=== PATIENT | female | born 1985 | race Caucasian/White ===

== ENCOUNTER 2016-10-27 01:31 | Emergency (ER) | payer BC ==
[~2016-10-27] VITALS: Ht 172.7 cm; Wt 131.5 kg
[~2016-10-27 01:31] MED LIST: CLR10 PO; CYCL10TA6 PO; FLUT0.15 NAE; LEVO1IUD PV; METO25TA56 PO; TRAM-10 PO
[2016-10-27 01:34] VITALS: TEMP 37; Ht 172.7 cm; Wt 131.5 kg
--- NOTE | 2016-10-27 01:46 | EMERGENCY ROOM VISIT NOTE ---
History Report prepared by Asiya: Ashley Velásquez Under the Supervision of: Dr. Pierre Salazar M.D. First contact with patient: 01:39 Chief Complaint: PALPITATIONS Stated Complaint: HEART PALPITATIONS History of Present Illness The patient is a 31 year old female who presents to the Emergency Room with complaints of intermittent tachycardia and palpitations that began this evening. The patient states that she felt fine earlier today and states that this evening, after she took her evening medications, she was watching TV when she developed the palpitations and tachycardia. She states that she has had this happen in the past, noting that the first time she was in SVT and the second time her potassium level was off. The patient states that when she noticed the symptoms today she associates a sore throat and cough, which is typical. She denies any chest pain, lymphadenopathy, or shortness of breath. The patient denies any history of thyroid problems or blood clots. She denies any recent travel or recent surgery. She states that she takes control daily. Source of History: patient Onset: this evening Position: other (global) Quality: other (tachycardia and palpitations) Timing: intermittent Associated Symptoms: + cough, + sorethroat, No SOB, No chest pain, No lymphadenopathy Review of Systems See HPI for pertinent positives & negatives. A total of 10 systems reviewed and were otherwise negative. Past Medical & Surgical Medical Problems: (1) UTI (urinary tract infection) Social History Problems: (1) IUD (intrauterine device) in place Family History Patient reports no known family medical history. Social History Smoking Status: Never Smoker Alcohol Use: occasionally Drug Use: none Occupation Status: employed Current/Historical Medications Scheduled Medroxyprogesterone Acetate (Depo-Provera), 400 MG INJ [id number] Metoprolol Tartrate (Lopressor) (Lopressor), 25 MG PO BID Scheduled PRN Cyclobenzaprine Hcl (Flexeril), 10 MG PO BID PRN for SPASMS Fluticasone Propionate (Nasal) (Flonase Allergy Relief), 1 SPRAY DIAMOND DAILY PRN for CONGESTION Loratadine (Claritin), 10 MG PO DAILY PRN for ALLERGIC REACTION Lorazepam (Ativan), 1 MG PO BID PRN for Anxiety Tramadol (Ultram), 50 MG PO Q6H PRN for Pain Allergies Coded Allergies: Cephalexin (Verified Allergy, Unknown, hives, 12/07/14) Prednisone (Verified Allergy, Unknown, SVT, 04/11/16) Physical Exam Vital Signs Date Time Temp Pulse Resp B/P Pulse Ox O2 Delivery O2 Flow Rate FiO2 10/27/16 02:53 84 20 116/73 96 10/27/16 02:06 81 10/27/16 01:53 91 20 120/75 98 Room Air 10/27/16 01:45 Room Air 10/27/16 01:34 37.0 85 20 182/115 97 Room Air Physical Exam GENERAL: Patient is well appearing and in no acute distress. HEENT: No acute trauma, normocephalic atraumatic, mucous membranes moist, no nasal congestion, no scleral icterus. NECK: No stridor, no adenopathy, no meningismus, trachea is midline. LUNGS: No dyspnea. Clear to auscultation and equal bilaterally. No wheeze, no rhonchi. HEART: Regular rate and rhythm. No murmurs, rubs, gallops appreciated. ABDOMEN: Soft, nontender, bowel sounds positive, no masses appreciated, no peritonitis. BACK: No midline tenderness, no CVA tenderness EXTREMITIES: Normal motion all extremities, no cyanosis, no edema. NEUROLOGIC: Alert and oriented, no acute motor or sensory deficits, no focal weakness, cranial nerves grossly intact. SKIN: No rash, no jaundice, no diaphoresis. Medical Decision & Procedures Laboratory Results 10/27/16 01:48 Red Blood Count 5.05, Mean Corpuscular Volume 82.6, Mean Corpuscular Hemoglobin 29.5, Mean Corpuscular Hemoglobin Concent 35.7, Mean Platelet Volume 9.0, Neutrophils (%) (Auto) 52.9, Lymphocytes (%) (Auto) 35.3, Monocytes (%) (Auto) 8.6, Eosinophils (%) (Auto) 2.4, Basophils (%) (Auto) 0.4, Neutrophils # (Auto) 7.05, Lymphocytes # (Auto) 4.72, Monocytes # (Auto) 1.15, Eosinophils # (Auto) 0.32, Basophils # (Auto) 0.06 10/27/16 01:48 Test 10/27/16 01:48 White Blood Count 13.36 K/uL (4.8-10.8) Red Blood Count 5.05 M/uL (4.2-5.4) Hemoglobin 14.9 g/dL (12.0-16.0) Hematocrit 41.7 % (37-47) Mean Corpuscular Volume 82.6 fL (80-100) Mean Corpuscular Hemoglobin 29.5 pg (25-34) Mean Corpuscular Hemoglobin Concent 35.7 g/dl (32-36) Platelet Count 410 K/uL (130-400) Mean Platelet Volume 9.0 fL (7.4-10.4) Neutrophils (%) (Auto) 52.9 % Lymphocytes (%) (Auto) 35.3 % Monocytes (%) (Auto) 8.6 % Eosinophils (%) (Auto) 2.4 % Basophils (%) (Auto) 0.4 % Neutrophils # (Auto) 7.05 K/uL (1.4-6.5) Lymphocytes # (Auto) 4.72 K/uL (1.2-3.4) Monocytes # (Auto) 1.15 K/uL (0.11-0.59) Eosinophils # (Auto) 0.32 K/uL (0-0.5) Basophils # (Auto) 0.06 K/uL (0-0.2) RDW Standard Deviation 40.7 fL (36.4-46.3) RDW Coefficient of Variation 13.6 % (11.5-14.5) Immature Granulocyte % (Auto) 0.4 % Immature Granulocyte # (Auto) 0.06 K/uL (0.00-0.02) Anion Gap 12.0 mmol/L (3-11) Est Creatinine Clear Calc Drug Dose 157.4 ml/min Estimated GFR () 124.0 Estimated GFR (Non- 107.0 BUN/Creatinine Ratio 15.7 (10-20) Calcium Level 8.9 mg/dl (8.5-10.1) Troponin I < 0.015 ng/ml (0-0.045) Thyroid Stimulating Hormone (TSH) 3.420 uIu/ml (0.300-4.500) Laboratory results as reviewed by me. ECG Indication: palpitations, tachycardia Rate (beats per minute): 86 Rhythm: normal sinus Findings: PVC, no acute ischemic change ED Course 0140: The patient was evaluated in room B2. A complete history and physical exam was performed. 0237: I reevaluated the patient and she is feeling well with no further issues. 0247: I reevaluated the patient and she is doing well. I discussed the exam findings with her and I discussed the treatment plan. She verbalized complete understanding and agreement. She is ready to go home. Medical Decision Differential: NSR, SVT, PACs, PVCs, Cardiac Dysrhythmia, Endocrine Dysfunction, Electrolyte/Metabolic Abnormality, Pulmonary Embolism, Infectious, GI, amongst other pathologies entertained. 31 yr old female with several year history of periodic palpitations, usually brought on by caffeine or stress. Admits poor appetite with increased stress/ work over last 24 hours and then stated having palpitations this evening. Notes associated cough which is typical for when she has these palpitations. No PE risk factors and she is without any symptoms currently. States symptoms similar to previous and thus I feel PE work-up not indicated at this time. Notes previously normal TSH/Mag when checked. Follows regularly with cards. BP and HR good here. We discussed she could take extra metoprolol in future if palpitations and no other symptoms. She is comfortable with going home and in no distress. Periodic PVCs on monitor noted without runs or issue. Impression Primary Impression: Intermittent palpitations Scribe Attestation The scribe's documentation has been prepared under my direction and personally reviewed by me in its entirety. I confirm that the note above accurately reflects all work, treatment, procedures, and medical decision making performed by me. Departure Information Dispostion Home / Self-Care Referrals Tyrese Greenfield M.D. (PCP) Forms HOME CARE DOCUMENTATION FORM, IMPORTANT VISIT INFORMATION Patient Instructions A Signature Page, ED Palpitations, My [facility]
[2016-10-27 02:02] LABS: BASO % 0.4 %; BASO ABS # 0.06 K/uL (0-0.2); COMPLETE YES; EOS % 2.4 %; HEMATOCRIT 41.7 % (37-47); IG% 0.4 %; LYMPH % 35.3 %; LYMPH ABS # 4.72 K/uL (1.2-3.4); MEAN CELL VOLUME 82.6 fL (80-100); MEAN CORPUSCULAR HEMOGLOBIN 29.5 pg (25-34); MEAN CORPUSCULAR HGB CONC 35.7 g/dl (32-36); MONO % 8.6 %; NEUT % 52.9 %; PLATELET COUNT 410 K/uL (130-400); RED BLOOD COUNT 5.05 M/uL (4.2-5.4); WHITE BLOOD COUNT 13.36 K/uL (4.8-10.8)
[2016-10-27 02:17] LABS: BLOOD UREA NITROGEN 12 mg/dl (7-18); BUN/CREATININE RATIO 15.7 (10-20); CALCIUM 8.9 mg/dl (8.5-10.1); CARBON DIOXIDE 22 mmol/L (21-32); CHLORIDE 108 mmol/L (98-107); CREATININE 0.75 mg/dl (0.60-1.20); GLUCOSE 107 mg/dl (70-99); POTASSIUM 3.6 mmol/L (3.5-5.1); SODIUM 142 mmol/L (136-145)
[2016-10-27] MEDS ORDERED: ATV/1 PO (02:26)
[2016-10-27] MEDS ORDERED: DPPRI400 INJ (02:29)
[2016-10-27 02:53] VITALS: BP 116/73; PULSE 84; O2SAT 96
== END 2016-10-27 02:54 | disposition home or self-care (01) ==
LOC: C.EDB 01:33
DX: R00.2 Palpitations (principal); Z87.440 Personal history of urinary (tract) infections; Z97.5 Presence of (intrauterine) contraceptive device

== ENCOUNTER 2017-04-10 03:49 | Emergency (ER) | payer BC, OTHER ==
[~2017-04-10] VITALS: Ht 172.7 cm; Wt 138.0 kg
[~2017-04-10 03:49] MED LIST changes: +ATV/1 PO; +DPPRI400 INJ; -LEVO1IUD PV
[2017-04-10 03:54] VITALS: BP 138/92; PULSE 81; TEMP 36.9; O2SAT 96; Ht 172.7 cm; Wt 138.0 kg
[2017-04-10] MEDS ORDERED: ONDA4TAB10 SL (04:22)
--- NOTE | 2017-04-10 04:27 | EMERGENCY ROOM VISIT NOTE ---
History First contact with patient: 04:00 Chief Complaint: HEAD INJURY (MINOR) Stated Complaint: CONCUSSION X 1WK AGO History of Present Illness The patient is a 31 year old female who presents to the Emergency Room with complaints of head injury one week ago. Patient states she stepped up and her jeep and hit her head on the door. She complained of immediate headache with feeling lightheaded and dizzy. Patient saw her family care for this was diagnosed with concussion. Patient states this is her first night back to work and feels that this if she overdid it. Patient states she did a lot of house cleaning today before coming into work. She has not been really not much since the initial head injury. She developed headache and vomited tonight after reading a lot of charts and documenting. She currently complains of a headache and feels lightheaded. 5 out of 10 throughout the head. Nothing makes it better or worse. Patient with occasional dizziness with feeling off balance. Patient denies chest pain, dyspnea, loss of vision, blurry vision, neck pain, chest pain, abdominal pain, numbness, tingling. She is tolerate by mouth fluids and food. Review of Systems See HPI for pertinent positives & negatives. A total of 10 systems reviewed and were otherwise negative. Past Medical/Surgical History Medical Problems: (1) UTI (urinary tract infection) Social History Problems: (1) IUD (intrauterine device) in place Family History Patient reports no known family medical history. Social History Smoking Status: Never Smoker Alcohol Use: occasionally Drug Use: none Occupation Status: employed Current/Historical Medications Scheduled Medroxyprogesterone Acetate (Depo-Provera), 400 MG INJ [id number] Metoprolol Tartrate (Lopressor) (Lopressor), 25 MG PO BID Ondasetron Odt (Zofran Odt), 4 MG SL Q6H Scheduled PRN Cyclobenzaprine Hcl (Flexeril), 10 MG PO BID PRN for SPASMS Fluticasone Propionate (Nasal) (Flonase Allergy Relief), 1 SPRAY DIAMOND DAILY PRN for CONGESTION Loratadine (Claritin), 10 MG PO DAILY PRN for ALLERGIC REACTION Lorazepam (Ativan), 1 MG PO BID PRN for Anxiety Tramadol (Ultram), 50 MG PO Q6H PRN for Pain Allergies Coded Allergies: Cephalexin (Verified Allergy, Unknown, hives, 12/07/14) Prednisone (Verified Allergy, Unknown, SVT, 04/11/16) Physical Exam Vital Signs Date Time Temp Pulse Resp B/P (MAP) Pulse Ox O2 Delivery O2 Flow Rate FiO2 04/10/17 04:01 18 04/10/17 03:54 36.9 81 20 138/92 96 Room Air Physical Exam VITALS: Vitals are noted on the nurse's note and reviewed by myself. Vital signs stable. GENERAL: Pleasant female, in no acute distress, nondiaphoretic, well-developed well-nourished. SKIN: The skin was without rashes, erythema, edema, or bruising. There is no tenting of the skin. Capillary reflex less than 2 seconds. HEAD: Normocephalic atraumatic. EARS: External auditory canals clear, tympanic membranes pearly gonzales without erythema or effusion bilaterally. EYES: Pupils equal round and reactive to light and accommodation. Conjunctivae without injection, sclerae without icterus. Extraocular movements intact. NOSE: Patent, turbinates without inflammation or discharge. No sinus tenderness. MOUTH: Mucous membranes moist. Pharynx without erythema or exudate. Uvula midline. Airway patent. Tongue does not deviate. NECK: Supple without nuchal rigidity. No lymphadenopathy. No thyromegaly. Cervical spine is nontender. No JVD. HEART: Regular rate and rhythm without murmurs gallops or rubs. LUNGS: Clear to auscultation bilaterally without wheezes, rales or rhonchi. No dullness to percussion. No retractions or accessory muscle use. ABDOMEN: Positive bowel sounds x 4. Normal tympanic percussion. Soft, nontender, without masses or organomegaly. Longoria sign negative. No guarding or rebound tenderness. MUSCULOSKELETAL: No muscle atrophy, erythema, or edema noted. NEURO: Patient was alert and oriented to person place and time. Normal sensation to light and sharp touch. No focal neurological deficits. Cranial nerves II through XII grossly intact. No pronator drift. Cerebellar exam intact Medical Decision & Procedures ED Course Prior records/ancillary studies reviewed. Triage Nursing notes reviewed. The patient's history was concerning for traumatic head injury Differential diagnosis: Etiologies such as concussion, contusion, fracture, subdural hematoma, epidural hematoma, intraparenchymal hemorrhage, as well as other traumatic pathologies were entertained. Physical examination findings: As above. ER treatment provided: Zofran ODT On reassessment the patient felt better. Diagnostics interpreted by me: Deferred It appears the patient has a concussion. I discussed the risks and the benefits of CT scanning. Clinically the patient is doing well and does not appear to have a significant underlying injury. The pt felt comfortable with conservative observation with the understanding if the clinical picture change that imaging may be necessary at a later time. I gave my usual and customary discussion regarding this issue. Patient was advised follow-up concussion clinic here in [facility]. She is advised to avoid activities that cause her headaches and to take a break from activity when she develops one. She is advised to see her family care doctor in a few days and take Zofran and Tylenol as needed for her symptoms. She is advised to return to the ER immediately for severe headache, fevers, weakness, worsening signs or symptoms or as needed. Patient was neurovascularly and neurologically intact. She is well-appearing. By the evaluation outlined above emergent etiologies such as fracture, subdural hematoma, epidural hematoma, intraparenchymal hemorrhage, as well as others were deemed relatively unlikely. The pt informed about the findings as listed above. All questions were answered and pleased with the treatment. Return instructions were outlined and the patient was discharged in stable condition. Outpatient Prescription Management: zofran Referral: The patient was referred back to their primary care physician for follow-up in 2 to 3 days for a recheck of the current condition. Medical Decision As above Impression Primary Impression: Closed head injury Departure Information Dispostion Home / Self-Care Condition GOOD Prescriptions Ondasetron Odt (ZOFRAN ODT) 4 Mg Tab 4 MG SL Q6H, #10 TAB Prov: Shelbi Luque .ANABEL 04/10/17 Forms HOME CARE DOCUMENTATION FORM, Work Instructions, Return To Work: 3 days IMPORTANT VISIT INFORMATION Patient Instructions Concussion, My [facility] Additional Instructions Zofran 4 m tablet every 6 hours as needed for nausea and her vomiting. Read head injury handout and return for any symptoms. Tylenol 1000 mg as needed for pain (Maximum 3000 mg Tylenol in 24 hr period). Avoid alcohol and contact sports/activities for one week and follow up with family doctor prior to returning to these activities if still symptomatic. Ice and elevate head. If your symptoms persist more than a week then follow up with the concussion clinic. Call [phone]. Return to ER sooner for headache, fevers, confusion, worsening signs or symptoms or as needed. Follow-up with family care in 2-3 days for further evaluation. Work Instructions Return To Work: 3 days Problem Qualifiers Primary Impression: Closed head injury Encounter type: initial encounter Qualified Codes: S09.90XA - Unspecified injury of head, initial encounter
[2017-04-10] MEDS ORDERED: ONDANSETRON HOME PACK 4MG OD TAB PO ONE (04:30)
== END 2017-04-10 04:34 | disposition home or self-care (01) ==
LOC: C.EDB 03:50 → C.EDA 04:34
DX: S09.90XA Unspecified injury of head, initial encounter (principal); V48.4XXA Person boarding or alighting a car injured in noncollision transport accident, initial encounter

== ENCOUNTER → 2017-06-22 | Outpatient (CLI) | payer OTHER ==
[~2017-06-22] MED LIST changes: +ONDA4TAB10 SL
== END | disposition home or self-care (01) ==
LOC: C.PAPS 10:28
PROVIDERS: ATTEND Obstetrics & Gynecology
DX: Z12.4 Encounter for screening for malignant neoplasm of cervix (principal)

== ENCOUNTER 2017-09-24 08:32 | Emergency (ER) | payer OTHER ==
[~2017-09-24] VITALS: Ht 172.7 cm; Wt 133.7 kg
[2017-09-24 08:35] VITALS: TEMP 36.9; Ht 172.7 cm; Wt 133.7 kg
[2017-09-24] MEDS ORDERED: ALBUT/IPRATROP 3MG/0.5MG NEB 3 ML VIAL INH STA (08:51)
[2017-09-24] MEDS ORDERED: DEXAMETHASONE SOD INJ 4 MG/ML VIAL IM STA (08:51)
[2017-09-24] MEDS ORDERED: DEXAMETHASONE **PF** INJ 10 MG/ML VIAL ONE (09:09)
[2017-09-24] MEDS ORDERED: DILT120C43 PO (09:18)
[2017-09-24] MEDS ORDERED: LXP10 PO (09:18)
--- NOTE | 2017-09-24 09:21 | DIAGNOSTIC IMAGING REPORT ---
CHEST ONE VIEW PORTABLE HISTORY: 32 years-old Female cough acute cough COMPARISON: Chest radiograph 12/08/2014 TECHNIQUE: Portable AP view of the chest FINDINGS: Cardiomediastinal and hilar silhouettes are within normal limits. No pneumothorax, pleural effusion, focal airspace consolidation or overt pulmonary edema. Bones of the chest are grossly intact. IMPRESSION: No acute cardiopulmonary process. The above report was generated using voice recognition software. It may contain grammatical, syntax or spelling errors. Electronically signed by: Abdirashid Schmidt M.D. 09/24/2017 9:20 AM Dictated Date/Time: 09/24/2017 9:15 AM
--- NOTE | 2017-09-24 09:57 | EMERGENCY ROOM VISIT NOTE ---
History Report prepared by Asiya: Shabbir Barcenas Under the Supervision of: Dr. Nathan Dang D.O. First contact with patient: 08:40 Chief Complaint: COUGH Stated Complaint: UPPER RESPIRATORY INFECTION History of Present Illness The patient is a 32 year old female who presents to the Emergency Room with complaints of a cough that began 1 month ago. She has a past medical history of SVT and was previously on Lopressor. She follows up with Cardiology and was recently switched from Lopressor to Cardizem. Over this time, she has been intermittently coughing up thick yellow sputum with a feeling of chest congestion. She is also has a sore throat. She denies any other abnormal symptoms. Source of History: patient Onset: 1 month Position: other (Respiratory System) Symptom Intensity: moderate Quality: other (Cough) Timing: constant Associated Symptoms: + sorethroat Note: She is having chest congestion. She denies any other abnormal symptoms. Review of Systems See HPI for pertinent positives & negatives. A total of 10 systems reviewed and were otherwise negative. Past Medical & Surgical Medical Problems: (1) UTI (urinary tract infection) Social History Problems: (1) IUD (intrauterine device) in place Family History Patient reports no known family medical history. Social History Smoking Status: Never Smoker Alcohol Use: occasionally Drug Use: none Occupation Status: employed Current/Historical Medications Scheduled Diltiazem Hcl Coated Beads (Cartia Xt), 120 MG PO DAILY Escitalopram Oxalate (Escitalopram Oxalate), 10 MG PO DAILY Medroxyprogesterone Acetate (Depo-Provera), 400 MG INJ [id number] Ondasetron Odt (Zofran Odt), 4 MG SL Q6H Scheduled PRN Cyclobenzaprine Hcl (Flexeril), 10 MG PO BID PRN for SPASMS Fluticasone Propionate (Nasal) (Flonase Allergy Relief), 1 SPRAY DIAMOND DAILY PRN for CONGESTION Loratadine (Claritin), 10 MG PO DAILY PRN for ALLERGIC REACTION Lorazepam (Ativan), 1 MG PO BID PRN for Anxiety Tramadol (Ultram), 50 MG PO Q6H PRN for Pain Allergies Coded Allergies: Cephalexin (Verified Allergy, Unknown, hives, 09/24/17) Prednisone (Verified Allergy, Unknown, SVT, 09/24/17) Physical Exam Vital Signs Date Time Temp Pulse Resp B/P (MAP) Pulse Ox O2 Delivery O2 Flow Rate FiO2 09/24/17 09:14 Room Air 09/24/17 08:35 36.9 99 18 129/91 96 Room Air Physical Exam CONSTITUTIONAL/VITAL SIGNS: Reviewed / noted above. GENERAL: Non-toxic in appearance. INTEGUMENTARY: Warm, dry, and [address]. HEAD: Normocephalic. EYES: without scleral icterus or trauma. ENT/OROPHARYNX: Moist. There are numerous tiny posterior pharyngeal vesicles. LYMPHADENOPATHY/NECK: Is supple without lymphadenopathy or meningismus. RESPIRATORY: Lungs clear and equal. CARDIOVASCULAR: Regular rate and rhythm. GI/ABDOMEN: Soft and nontender. No organomegaly or pulsatile mass. No rebound or guarding. Normal bowel sounds. EXTREMITIES: Warm and well perfused. BACK: No CVA tenderness. NEUROLOGICAL: Intact without focal deficits. PSYCHIATRIC: normal affect. MUSCULOSKELETAL: Normally developed with good muscle tone. Medical Decision & Procedures ER Provider Diagnostic Interpretation: Radiology results as stated below per my review and radiologist interpretation: CHEST ONE VIEW PORTABLE HISTORY: 32 years-old Female cough acute cough COMPARISON: Chest radiograph 12/08/2014 TECHNIQUE: Portable AP view of the chest FINDINGS: Cardiomediastinal and hilar silhouettes are within normal limits. No pneumothorax, pleural effusion, focal airspace consolidation or overt pulmonary edema. Bones of the chest are grossly intact. IMPRESSION: No acute cardiopulmonary process. The above report was generated using voice recognition software. It may contain grammatical, syntax or spelling errors. Electronically signed by: Abdirashid Schmidt M.D. 09/24/2017 9:20 AM Dictated Date/Time: 09/24/2017 9:15 AM Medications Administered Medications (Trade) Dose Ordered Sig/Kenney Route Start Time Stop Time Status Last Admin Dose Admin Albuterol/ Ipratropium (Duoneb) 3 ml NOW STAT INH 09/24/17 08:51 09/24/17 08:57 DC 09/24/17 09:11 3 ML Dexamethasone Sodium Phosphate (Dexamethasone Inj Pf) 10 mg STK-MED ONCE .ROUTE 09/24/17 09:09 09/24/17 09:10 DC 09/24/17 09:13 8 MG ED Course 0840: Previous medical records were reviewed. The patient was evaluated in room B2. A complete history and physical examination was performed. 0851: Ordered Decadron Inj 8 mg IM, DuoNeb 3 ml INH 0909: Ordered Dexamethasone Sodium Phosphate 10 mg .ROUTE 1000: On reevaluation, the patient is resting. I discussed the results and findings with the patient. She verbalized agreement of the treatment plan. She was discharged home. Medical Decision Differentials considered include acute myocardial infarction, acute coronary syndrome, myocarditis, pericarditis, pericardial effusions /tamponade, esophageal perforation, pulmonary embolism, pneumonia, pneumothorax, cardiomyopathy, congestive heart, anemia, and COPD/asthma exacerbation. This is a 32-year-old female who presents to the ED with a chief complaint of a cough she reports that her symptoms have increased over the last couple of days. She states that she has an occasional productive yellow sputum. She also complains of a sore throat. Her vital signs are normal. She is afebrile. Physical exam reveals some posterior oropharyngeal vesicles. She is no lymphadenopathy. Her lungs were mostly clear. She was treated with a DuoNeb treatment as well as some IM Decadron. Her symptoms are felt to be viral. A chest x-ray did not show acute process. She is felt to be stable for discharge. Medication Reconcilliation Current Medication List: was personally reviewed by me Blood Pressure Screening Patient's blood pressure: Normal blood pressure Blood pressure disposition: Did not require urgent referral Impression Primary Impression: Viral URI with cough Scribe Attestation The scribe's documentation has been prepared under my direction and personally reviewed by me in its entirety. I confirm that the note above accurately reflects all work, treatment, procedures, and medical decision making performed by me. Departure Information Dispostion Home / Self-Care Referrals Tyrese Greenfield M.D. (PCP) Forms HOME CARE DOCUMENTATION FORM, IMPORTANT VISIT INFORMATION Patient Instructions My [facility] Additional Instructions Follow-up with your PCP in 4-7 days if symptoms persist. Anticipate some improvement of the symptoms over the next week. Take Tylenol or Motrin as needed for discomfort. Use throat lozenges or sore throat sprays for sore throat.
[2017-09-24 10:37] VITALS: BP 131/88; PULSE 93; O2SAT 98
== END 2017-09-24 10:38 | disposition home or self-care (01) ==
LOC: C.EDB 08:34
DX: J06.9 Acute upper respiratory infection, unspecified (principal); R05 Cough

== ENCOUNTER 2017-12-06 16:52 | Emergency (ER) | payer OTHER ==
[~2017-12-06] VITALS: Ht 172.7 cm; Wt 135.6 kg
[~2017-12-06 16:52] MED LIST changes: -CLR10 PO; -CYCL10TA6 PO; +DILT120C43 PO; -FLUT0.15 NAE; +LXP10 PO; -METO25TA56 PO; -ONDA4TAB10 SL
[2017-12-06 17:07] VITALS: TEMP 37; Ht 172.7 cm; Wt 135.6 kg
--- NOTE | 2017-12-06 17:36 | EMERGENCY ROOM VISIT NOTE ---
History Report prepared by Asiay: Blair Dodson Under the Supervision of: Dr. Nathan Velasquez M.D. First contact with patient: 17:09 Chief Complaint: OVERDOSE (INTENTIONAL) Stated Complaint: TOOK PILLS AND ALCOHOL History of Present Illness The patient is a 32 year old female who presents to the Emergency Room with complaints of a persistent intentional overdose occurring earlier today. The patient's mother states that the patient took her regular prescribed medications at a normal dose, and her called the police for the patient. The patient states that she was taking this medication to get some sleep since she has been crying all last night and today, and she states that she was not trying to kill herself. The patient states that she is currently having marital problems with her . The patient's mother notes that when the police came, the patient was able to walk and talk normally, and the patient did not want to come to the hospital. The mother notes that before the patient came in she tried to grab a bottle of liquor from the cabinet, but the mother was able to dump it out. The patient denies any suicidal or homicidal ideations. The patient states that she had 2-3 drinks of alcohol today. She states that there is no chance that she is , and her last normal menstrual period was the 16th. The patient states that she takes Ultram for her herniated disc, and she took ibuprofen and Benadryl. Source of History: patient Onset: earlier today Position: other (global) Quality: other (overdose) Timing: other (persistent) Note: Denies suicidal and homicidal ideations. Review of Systems See HPI for pertinent positives & negatives. A total of 10 systems reviewed and were otherwise negative. Past Medical & Surgical Medical Problems: (1) UTI (urinary tract infection) Social History Problems: (1) IUD (intrauterine device) in place Family History Patient reports no known family medical history. Social History Smoking Status: Never Smoker Alcohol Use: occasionally Drug Use: none Occupation Status: employed Current/Historical Medications Scheduled Diltiazem Hcl Coated Beads (Cartia Xt), 120 MG PO DAILY Escitalopram Oxalate (Escitalopram Oxalate), 10 MG PO DAILY Fluticasone Propionate (Flovent Hfa), 2 PUFFS INH BID Medroxyprogesterone Acetate (C (Medroxyprogesterone Aceta), 150 MG IM UD Montelukast Sod (Montelukast Sodium), 10 MG PO DAILY Naltrexone HCl-Bupropion HCl (Contrave 8-90 mg), 1 TAB PO BID Scheduled PRN Albuterol Hfa (Ventolin Hfa), 2 PUFFS INH Q4H PRN for SOB/Wheezing Cyclobenzaprine Hcl (Flexeril), 10 MG PO BID PRN for Muscle Spasm Fluticasone Propionate (Nasal) (Flonase Allergy Relief), 2 SPRAYS DIAMOND DAILY PRN for Nasal Congestion Loratadine (Claritin), 10 MG PO DAILY PRN for Allergy Symptoms Lorazepam (Ativan), 1 MG PO DAILY PRN for Prior to Dental Appointment Tramadol HCl (Tramadol HCl), 50 MG PO Q6H PRN for Pain Zolpidem Tartrate (Zolpidem Tartrate), 10 MG PO HS PRN for Sleep Allergies Coded Allergies: Cephalexin (Verified Allergy, Unknown, hives, 09/24/17) Prednisone (Verified Allergy, Unknown, SVT, 09/24/17) Physical Exam Vital Signs Date Time Temp Pulse Resp B/P (MAP) Pulse Ox O2 Delivery O2 Flow Rate FiO2 12/06/17 20:07 108 18 109/77 95 12/06/17 18:40 114 22 120/70 93 Room Air 12/06/17 18:06 107 12/06/17 17:37 94 Room Air 12/06/17 17:07 37.0 118 18 112/71 94 Room Air Physical Exam GENERAL: Patient is a healthy-appearing well-nourished female HEAD: Normocephalic atraumatic EYES: Ocular movements intact pupils equal and react to light OROPHARYNX mucous membranes are moist no exudates present no erythema or edema present NECK: Supple no nuchal rigidity CHEST: Good equal expansion LUNGS: Clear and equal to auscultation CARDIAC: Normal S1 and S2 ABDOMEN: Soft nontender no guarding BACK: No CVA tenderness EXTREMITIES: No pain upon palpation normal muscle strength in all groups no clubbing cyanosis or edema NEURO: Patient is following commands and answering questions appropriately. Alert and oriented x3 Cranial Nerves 2-12 grossly intact Medical Decision & Procedures Laboratory Results 12/06/17 17:31 Red Blood Count 5.21, Mean Corpuscular Volume 81.8, Mean Corpuscular Hemoglobin 29.2, Mean Corpuscular Hemoglobin Concent 35.7, Mean Platelet Volume 8.6, Neutrophils (%) (Auto) 56.9, Lymphocytes (%) (Auto) 33.9, Monocytes (%) (Auto) 7.0, Eosinophils (%) (Auto) 1.2, Basophils (%) (Auto) 0.6, Neutrophils # (Auto) 6.45, Lymphocytes # (Auto) 3.85, Monocytes # (Auto) 0.79, Eosinophils # (Auto) 0.14, Basophils # (Auto) 0.07 12/06/17 17:31 Test 12/06/17 17:31 12/06/17 17:34 12/06/17 17:55 White Blood Count 11.35 K/uL (4.8-10.8) Red Blood Count 5.21 M/uL (4.2-5.4) Hemoglobin 15.2 g/dL (12.0-16.0) Hematocrit 42.6 % (37-47) Mean Corpuscular Volume 81.8 fL (80-100) Mean Corpuscular Hemoglobin 29.2 pg (25-34) Mean Corpuscular Hemoglobin Concent 35.7 g/dl (32-36) Platelet Count 395 K/uL (130-400) Mean Platelet Volume 8.6 fL (7.4-10.4) Neutrophils (%) (Auto) 56.9 % Lymphocytes (%) (Auto) 33.9 % Monocytes (%) (Auto) 7.0 % Eosinophils (%) (Auto) 1.2 % Basophils (%) (Auto) 0.6 % Neutrophils # (Auto) 6.45 K/uL (1.4-6.5) Lymphocytes # (Auto) 3.85 K/uL (1.2-3.4) Monocytes # (Auto) 0.79 K/uL (0.11-0.59) Eosinophils # (Auto) 0.14 K/uL (0-0.5) Basophils # (Auto) 0.07 K/uL (0-0.2) RDW Standard Deviation 41.1 fL (36.4-46.3) RDW Coefficient of Variation 13.7 % (11.5-14.5) Immature Granulocyte % (Auto) 0.4 % Immature Granulocyte # (Auto) 0.05 K/uL (0.00-0.02) Prothrombin Time 10.2 SECONDS (9.0-12.0) Prothromb Time International Ratio 1.0 (0.9-1.1) Activated Partial Thromboplast Time 27.5 SECONDS (21.0-31.0) Partial Thromboplastin Ratio 1.1 Anion Gap 8.0 mmol/L (3-11) Est Creatinine Clear Calc Drug Dose 141.8 ml/min Estimated GFR () 107.3 Estimated GFR (Non- 92.6 BUN/Creatinine Ratio 11.3 (10-20) Calcium Level 9.0 mg/dl (8.5-10.1) Total Bilirubin 0.2 mg/dl (0.2-1) Direct Bilirubin < 0.1 mg/dl (0-0.2) Aspartate Amino Transf (AST/SGOT) 13 U/L (15-37) Alanine Aminotransferase (ALT/SGPT) 24 U/L (12-78) Alkaline Phosphatase 98 U/L (45-117) Total Creatine Kinase 119 U/L (26-192) Total Protein 8.5 gm/dl (6.4-8.2) Albumin 3.8 gm/dl (3.4-5.0) Lipase 151 U/L (73-393) Salicylates Level 6.2 mg/dl (2.8-20) Acetaminophen Level < 2 ug/ml (10-30) Ethyl Alcohol mg/dL 73.0 mg/dl (0-3) Bedside Glucose 90 mg/dl (70-90) Urine Color YELLOW Urine Appearance CLEAR (CLEAR) Urine pH 5.5 (4.5-7.5) Urine Specific [place] 1.015 (1.000-1.030) Urine Protein NEG (NEG) Urine Glucose (UA) NEG (NEG) Urine Ketones NEG (NEG) Urine Occult Blood NEG (NEG) Urine Nitrite NEG (NEG) Urine Bilirubin NEG (NEG) Urine Urobilinogen NEG (NEG) Urine Leukocyte Esterase NEG (NEG) Urine Test NEG (NEG) Urine Opiates Screen POS (NEG) Urine Methadone, Qualitative NEG (NEG) Urine Barbiturates NEG (NEG) Urine Phencyclidine (PCP) Level NEG (NEG) Ur Amphetamine/Methamphetamine NEG (NEG) MDMA (Ecstasy) Screen POS (NEG) Urine Benzodiazepines Screen NEG (NEG) Urine Cocaine Metabolite NEG (NEG) Urine Marijuana (THC) NEG (NEG) Labs reviewed by ED physician. ECG Per My Interpretation Indication: toxicologic Rate (beats per minute): 114 Rhythm: sinus tachycardia Findings: other (Normal axis, no ST evleation or depression) ED Course 1708: Past medical records reviewed. The patient was evaluated in room B5. A complete history and physical examination was performed. 1945: The psych family independence case manager, and he thinks that the patient is able to go home. 2004: Upon reexamination the patient is doing well. I discussed results and treatment plan with the patient. She verbalizes agreement and understanding. The patient is ready for discharge. Medical Decision Differential diagnosis: Etiologies such as toxicologic, infection, hypoglycemia, electrolyte abnormalities, cardiac sources, intracerebral event, neurologic, as well as others were entertained. This is a 32-year-old female presents emergency department after drinking alcohol this evening. The patient took her normal doses of medications. She is brought here by her mother. Patient is sad over her marriage. She is willing to speak with case management but denies being suicidal or homicidal. Case management felt that the patient was well enough to be discharged home. The patient denies being suicidal however I stressed she return to the emergency department she develops any suicidal thoughts. Patient and mother were in agreement with the treatment plan. Medication Reconcilliation Current Medication List: was personally reviewed by me Blood Pressure Screening Patient's blood pressure: Normal blood pressure Impression Primary Impression: Mood disorder Scribe Attestation The scribe's documentation has been prepared under my direction and personally reviewed by me in its entirety. I confirm that the note above accurately reflects all work, treatment, procedures, and medical decision making performed by me. Departure Information Dispostion Home / Self-Care Referrals No Doctor, Assigned (PCP) Forms HOME CARE DOCUMENTATION FORM, IMPORTANT VISIT INFORMATION, WORK / SCHOOL INSTRUCTIONS Patient Instructions My [facility] Additional Instructions Need follow up with outpatient psych services Return if symptoms worsen You have been examined and treated today on an emergency basis only. This is not a substitute for, or an effort to provide, complete comprehensive medical care. It is impossible to recognize and treat all injuries or illnesses in a single emergency department visit. It is therefore important that you follow up closely with Dr Greenfield. Call as soon as possible for an appointment. Thank you for your time and consideration. I look forward to speaking with you again soon. Please don't hesitate to call us if you have any questions.
[2017-12-06 17:37] VITALS: O2SAT 94
[2017-12-06 17:57] LABS: BASO % 0.6 %; BASO ABS # 0.07 K/uL (0-0.2); EOS % 1.2 %; EOS ABS # 0.14 K/uL (0-0.5); HEMATOCRIT 42.6 % (37-47); HEMOGLOBIN 15.2 g/dL (12.0-16.0); IG# 0.05 K/uL (0.00-0.02); LYMPH % 33.9 %; LYMPH ABS # 3.85 K/uL (1.2-3.4); MEAN CELL VOLUME 81.8 fL (80-100); MEAN CORPUSCULAR HEMOGLOBIN 29.2 pg (25-34); MEAN CORPUSCULAR HGB CONC 35.7 g/dl (32-36); MEAN PLATELET VOLUME 8.6 fL (7.4-10.4); MONO ABS # 0.79 K/uL (0.11-0.59); NEUT % 56.9 %; NEUT ABS # 6.45 K/uL (1.4-6.5); PLATELET COUNT 395 K/uL (130-400); RED CELL DISTRIBUTION WIDTH CV 13.7 % (11.5-14.5); RED CELL DISTRIBUTION WIDTH SD 41.1 fL (36.4-46.3); WHITE BLOOD COUNT 11.35 K/uL (4.8-10.8)
[2017-12-06 18:06] LABS: PTT PATIENT 27.5 SECONDS (21.0-31.0)
[2017-12-06] MEDS ORDERED: FLVHFA110 INH (18:11)
[2017-12-06] MEDS ORDERED: MEDR1INJ5 IM (18:11)
[2017-12-06] MEDS ORDERED: SNG10 PO (18:11)
[2017-12-06] MEDS ORDERED: ULT50 PO (18:11)
[2017-12-06] MEDS ORDERED: VNTHFA/IN INH (18:11)
[2017-12-06] MEDS ORDERED: ZOLP10TA6 PO (18:11)
[2017-12-06 18:17] LABS: ALBUMIN 3.8 gm/dl (3.4-5.0); ALT/SGPT 24 U/L (12-78); BLOOD UREA NITROGEN 10 mg/dl (7-18); CARBON DIOXIDE 22 mmol/L (21-32); CREATININE 0.84 mg/dl (0.60-1.20); GLUCOSE 89 mg/dl (70-99); LIPASE 151 U/L (73-393); POTASSIUM 3.5 mmol/L (3.5-5.1); SODIUM 140 mmol/L (136-145)
[2017-12-06] MEDS ORDERED: NALT1TAB14 PO (18:17)
[2017-12-06 18:20] LABS: ALKALINE PHOSPHATASE 98 U/L (45-117); AST/SGOT 13 U/L (15-37); TOTAL PROTEIN 8.5 gm/dl (6.4-8.2)
[2017-12-06] MEDS ORDERED: CLR10 PO (18:42)
[2017-12-06] MEDS ORDERED: CYCL10TA6 PO (18:43)
[2017-12-06] MEDS ORDERED: FLUT0.15 NAE (18:46)
[2017-12-06 20:07] VITALS: BP 109/77; PULSE 108; O2SAT 95
== END 2017-12-06 20:04 | disposition home or self-care (01) ==
LOC: C.EDB 16:54
DX: F39 Unspecified mood [affective] disorder (principal); Z87.440 Personal history of urinary (tract) infections; Z79.899 Other long term (current) drug therapy

== ENCOUNTER 2018-02-21 02:00 | Emergency (ER) | payer OTHER ==
[~2018-02-21] VITALS: Ht 172.7 cm; Wt 136.6 kg
[~2018-02-21 02:00] MED LIST changes: +CLR10 PO; +CYCL10TA6 PO; -DPPRI400 INJ; +FLUT0.15 NAE; +FLVHFA110 INH; +MEDR1INJ5 IM; +NALT1TAB14 PO; +SNG10 PO; -TRAM-10 PO; +ULT50 PO; +VNTHFA/IN INH; +ZOLP10TA6 PO
[2018-02-21 02:06] VITALS: TEMP 36.9; Ht 172.7 cm; Wt 136.6 kg
[2018-02-21] MEDS ORDERED: SODIUM CHLORIDE 0.9% 1000ML 1,000 ML IV STA (02:20)
[2018-02-21] MEDS ORDERED: ALBUT/IPRATROP 3MG/0.5MG NEB 3 ML VIAL INH STA (02:20)
[2018-02-21] MEDS ORDERED: DEXAMETHASONE **PF** INJ 10 MG/ML VIAL IV ONE (02:30)
[2018-02-21] MEDS ORDERED: ESCI1TAB10 PO (02:35)
[2018-02-21] MEDS ORDERED: ABL/5 PO (02:36)
[2018-02-21] MEDS ORDERED: TOPI25TA99 PO (02:37)
[2018-02-21 02:47] LABS: BASO % 0.5 %; BASO ABS # 0.05 K/uL (0-0.2); EOS % 3.6 %; EOS ABS # 0.35 K/uL (0-0.5); HEMOGLOBIN 14.3 g/dL (12.0-16.0); IG# 0.07 K/uL (0.00-0.02); LYMPH % 40.5 %; MEAN CELL VOLUME 83.5 fL (80-100); MEAN CORPUSCULAR HEMOGLOBIN 28.4 pg (25-34); MEAN PLATELET VOLUME 8.6 fL (7.4-10.4); MONO % 7.9 %; MONO ABS # 0.76 K/uL (0.11-0.59); NEUT % 46.8 %; NEUT ABS # 4.51 K/uL (1.4-6.5); PLATELET COUNT 350 K/uL (130-400); RED CELL DISTRIBUTION WIDTH CV 14.6 % (11.5-14.5); RED CELL DISTRIBUTION WIDTH SD 44.4 fL (36.4-46.3); WHITE BLOOD COUNT 9.64 K/uL (4.8-10.8)
--- NOTE | 2018-02-21 03:04 | EMERGENCY ROOM VISIT NOTE ---
History Report prepared by Asiya: Merissa Jasso Under the Supervision of: Dr. Pierre Salazar M.D. First contact with patient: 02:10 Chief Complaint: SORETHROAT Stated Complaint: SORE THROAT, DIZZY, COUGH History of Present Illness The patient is a 32 year old female who presents to the Emergency Room with complaints of a constant sore throat starting a month ago. The patient states that she thinks she has mono. She reports that she saw her PCP yesterday who thought the same thing and started her on a Z-pack. She states her PCP also noticed fluid in her ears. She reports that she was not started on a steroid, but thought maybe she should be. The patient complains of fatigue, nasal congestion, loss of appetite, fevers, a rash of little red bumps, loose stools since starting the Z-Pack, and feeling like her breathing is off. She notes that she has used Flonase, Marc-vent, and Albuterol with no relief. She notes that she lives in an apartment with mold and that she is being followed for her breathing problem. The patient denies exposure to someone with mono, a history of asthma, abdominal pain, recent tick bites, ever having Lyme, urinary symptoms , and the chance of . The patient notes that she recently was on a cruise. Source of History: patient Onset: a month ago Position: throat Quality: other (sore) Timing: constant Associated Symptoms: + fevers, + diarrhea, + fatigue, + rash, No abdominal pain, No urinary symptoms Note: The patient complains of nasal congestion, loss of appetite, and feeling like her breathing is off. The patient denies recent tick bites. Review of Systems See HPI for pertinent positives & negatives. A total of 10 systems reviewed and were otherwise negative. Past Medical & Surgical Medical Problems: (1) UTI (urinary tract infection) Social History Problems: (1) IUD (intrauterine device) in place Family History Patient reports no known family medical history. Social History Smoking Status: Never Smoker Alcohol Use: occasionally Drug Use: none Marital Status: single Housing Status: lives alone Occupation Status: employed Current/Historical Medications Scheduled Aripiprazole (Abilify), 5 MG PO DAILY Diltiazem Hcl Coated Beads (Cartia Xt), 240 MG PO DAILY Escitalopram Oxalate (Lexapro), 20 MG PO DAILY Fluticasone Propionate (Flovent Hfa), 2 PUFFS INH BID Medroxyprogesterone Acetate (C (Medroxyprogesterone Aceta), 150 MG IM UD Methylprednisolone (Medrol Dosepak), 1 PKT PO UD Montelukast Sod (Montelukast Sodium), 10 MG PO DAILY Naltrexone HCl-Bupropion HCl (Contrave 8-90 mg), 1 TAB PO BID Topiramate (Topamax ), 25 MG PO BID Scheduled PRN Albuterol Hfa (Ventolin Hfa), 2 PUFFS INH Q4H PRN for SOB/Wheezing Fluticasone Propionate (Nasal) (Flonase Allergy Relief), 2 SPRAYS DIAMOND DAILY PRN for Nasal Congestion Loratadine (Claritin), 10 MG PO DAILY PRN for Allergy Symptoms Lorazepam (Ativan), 0.5 MG PO DAILY PRN for Prior to Dental Appointment Allergies Coded Allergies: Cephalexin (Verified Allergy, Unknown, hives, 02/21/18) Prednisone (Verified Allergy, Unknown, SVT, 02/21/18) Physical Exam Vital Signs Date Time Temp Pulse Resp B/P (MAP) Pulse Ox O2 Delivery O2 Flow Rate FiO2 02/21/18 04:11 89 20 95 02/21/18 04:00 114/76 02/21/18 03:41 86 18 96 02/21/18 03:30 111/79 02/21/18 03:11 92 18 97 Room Air 02/21/18 03:00 125/78 02/21/18 02:50 94 02/21/18 02:41 93 19 02/21/18 02:36 118/82 02/21/18 02:06 36.9 91 20 140/97 96 Room Air Physical Exam GENERAL: Patient is anxious appearing and in mild distress. EYES: No scleral icterus, unremarkable pupils. ENT: Mucous membranes are dry, no nasal congestion. Ear- bilateral effusions. NECK: No masses appreciated, no meningismus, trachea is midline. RESPIRATORY: No dyspnea. Equal bilaterally. Mild expiratory wheeze. No rhonchi. CARDIOVASCULAR: Regular rate and rhythm. No murmurs, rubs, gallops appreciated. GASTROINTESTINAL: Abdomen soft, nontender, no peritonitis. Bowel sounds positive. No masses appreciated. BACK: No midline tenderness, no CVA tenderness EXTREMITIES: Normal motion all extremities, no cyanosis, no edema. NEUROLOGIC: Alert and oriented, no acute motor or sensory deficits, no focal weakness, cranial nerves grossly intact. SKIN: Mild folliculitis on trunk. No jaundice, no diaphoresis. Multiple areas of sunburn. Medical Decision & Procedures ER Provider Diagnostic Interpretation: X ray results are stated below per my interpretation: Chest: 1 view: No infiltrate, no effusion, normal cardiac border. Similar to chest x-ray done in September 2017. Laboratory Results 02/21/18 02:25 Red Blood Count 5.03, Mean Corpuscular Volume 83.5, Mean Corpuscular Hemoglobin 28.4, Mean Corpuscular Hemoglobin Concent 34.0, Mean Platelet Volume 8.6, Neutrophils (%) (Auto) 46.8, Lymphocytes (%) (Auto) 40.5, Monocytes (%) (Auto) 7.9, Eosinophils (%) (Auto) 3.6, Basophils (%) (Auto) 0.5, Neutrophils # (Auto) 4.51, Lymphocytes # (Auto) 3.90, Monocytes # (Auto) 0.76, Eosinophils # (Auto) 0.35, Basophils # (Auto) 0.05 02/21/18 02:25 Test 02/21/18 02:25 White Blood Count 9.64 K/uL (4.8-10.8) Red Blood Count 5.03 M/uL (4.2-5.4) Hemoglobin 14.3 g/dL (12.0-16.0) Hematocrit 42.0 % (37-47) Mean Corpuscular Volume 83.5 fL (80-100) Mean Corpuscular Hemoglobin 28.4 pg (25-34) Mean Corpuscular Hemoglobin Concent 34.0 g/dl (32-36) Platelet Count 350 K/uL (130-400) Mean Platelet Volume 8.6 fL (7.4-10.4) Neutrophils (%) (Auto) 46.8 % Lymphocytes (%) (Auto) 40.5 % Monocytes (%) (Auto) 7.9 % Eosinophils (%) (Auto) 3.6 % Basophils (%) (Auto) 0.5 % Neutrophils # (Auto) 4.51 K/uL (1.4-6.5) Lymphocytes # (Auto) 3.90 K/uL (1.2-3.4) Monocytes # (Auto) 0.76 K/uL (0.11-0.59) Eosinophils # (Auto) 0.35 K/uL (0-0.5) Basophils # (Auto) 0.05 K/uL (0-0.2) RDW Standard Deviation 44.4 fL (36.4-46.3) RDW Coefficient of Variation 14.6 % (11.5-14.5) Immature Granulocyte % (Auto) 0.7 % Immature Granulocyte # (Auto) 0.07 K/uL (0.00-0.02) Anion Gap 7.0 mmol/L (3-11) Est Creatinine Clear Calc Drug Dose 135.9 ml/min Estimated GFR () 101.5 Estimated GFR (Non- 87.6 BUN/Creatinine Ratio 12.7 (10-20) Calcium Level 8.6 mg/dl (8.5-10.1) Total Creatine Kinase 185 U/L (26-192) Lyme Disease IgG Antibody NEG (NEG) Lyme Disease IgM Antibody NEG (NEG) Monoscreen NEG (NEG) Laboratory results as reviewed by me. Medications Administered Medications (Trade) Dose Ordered Sig/Ken[place] Route Start Time Stop Time Status Last Admin Dose Admin Dexamethasone Sodium Phosphate (Dexamethasone Inj Pf) 10 mg NOW ONCE IV 02/21/18 02:30 02/21/18 02:31 DC 02/21/18 02:39 10 MG Albuterol/ Ipratropium (Duoneb) 3 ml NOW STAT INH 02/21/18 02:20 02/21/18 02:21 DC 02/21/18 02:36 3 ML Sodium Chloride 1,000 ml @ 999 mls/hr Q1H1M STAT IV 02/21/18 02:20 02/21/18 03:20 DC 02/21/18 02:35 999 MLS/HR Lidocaine HCl (Viscous Lidocaine 2% Soln) 10 ml NOW STAT MT 02/21/18 03:39 02/21/18 03:40 DC 02/21/18 04:18 10 ML Ketorolac Tromethamine (Toradol Inj) 30 mg NOW STAT IV 02/21/18 03:39 02/21/18 03:40 DC 02/21/18 04:19 30 MG ED Course 0213: The patient was evaluated in room B10. A complete history and physical exam was performed. 0220: Ordered NSS 1000 ml @ 999 mls/hr IV, Duoneb 3 ml INH. 0230: Ordered Dexamethasone Sodium Phosphate 10 mg IV. 0327: I reevaluated the patient and she has resolution of the wheezing. She denies significant change in symptoms. 0339: Ordered Toradol Inj 30 mg IV, Lidocaine HCl 10 ml MT. 0341: Reevaluated the patient. Discussed results and discharge instructions: She verbalized understanding and agreement. She agrees to the Medrol dose pack and to follow up with her PCP. She notes that she has an inhaler at home already. The patient is ready for discharge. Medical Decision Differential: Viral, Tonsillitis, Strep, [place], Peritonsillar Abscess, Retropharyngeal Abscess, Otitis, Pneumonia, Influenza, amongst other pathologies entertained. 32 yr old female arrives for evaluation of sore throat, ear congestion, sinus congestion, fatigue, cough, diarrhea, weakness. Effusions bilateral ears and mild expiratory wheeze on exam. Given fluids and steroids along with nebulizer. Wheeze gone but pt denies change in symptoms. Given Lidocaine/ Toradol for sore throat. Suggested continuing Zpack though I am not convinced there is bacterial infection. Likely will improve better with steroids and thus given medrol pack which she has tolerated previously. [place] and lyme are negative. Labs unremarkable. CXR clear. Follow up with PCP. RTED if worsening or other concerns. No evidence nor history to suggest PE. Symptoms not compatible with abscess. No OM on ear examination. Medication Reconcilliation Current Medication List: was personally reviewed by me Blood Pressure Screening Patient's blood pressure: Normal blood pressure Blood pressure disposition: Did not require urgent referral Impression Primary Impression: Sore throat Additional Impressions: Dehydration Sinus congestion Acute effusion of both middle ears Scribe Attestation The scribe's documentation has been prepared under my direction and personally reviewed by me in its entirety. I confirm that the note above accurately reflects all work, treatment, procedures, and medical decision making performed by me. Departure Information Dispostion Home / Self-Care Prescriptions Methylprednisolone (MEDROL DOSEPAK) 4 Mg Jose R 1 PKT PO UD for 6 Days, #1 PKT Prov: Pierre Salazar M.D. 02/21/18 Referrals Tyrese Greenfield M.D. (PCP) Forms HOME CARE DOCUMENTATION FORM, IMPORTANT VISIT INFORMATION Patient Instructions My [facility] Additional Instructions Keep well hydrated. Continue to use inhalers as necessary. If no improvement in symptoms please follow up with primary provider for further work-up and evaluation. Return if fevers, worsening pain, difficulty breathing or other concerns. Problem Qualifiers
[2018-02-21 03:12] LABS: CALCIUM 8.6 mg/dl (8.5-10.1); CREATININE 0.88 mg/dl (0.60-1.20); POTASSIUM 3.5 mmol/L (3.5-5.1)
[2018-02-21 03:13] LABS: MONOSPOT NEG (NEG)
[2018-02-21] MEDS ORDERED: LIDOCAINE HCL 2% VISC SOLN 20 ML UDC MT STA (03:39)
[2018-02-21] MEDS ORDERED: KETOROLAC TROMETHAMINE 30 MG/ML VIAL IV STA (03:39)
[2018-02-21] MEDS ORDERED: METH4PAK PO (03:47)
[2018-02-21 04:00] VITALS: BP 114/76
[2018-02-21 04:11] VITALS: PULSE 89; O2SAT 95
--- NOTE | 2018-02-21 06:35 | DIAGNOSTIC IMAGING REPORT ---
CHEST ONE VIEW PORTABLE CLINICAL HISTORY: Wheeze dyspnea COMPARISON STUDY: 09/24/2017 FINDINGS: The bones soft tissues and hemidiaphragms are normal. The cardiomediastinal silhouette is normal. The lungs are clear. The pulmonary vasculature is normal. IMPRESSION: Negative chest. The above report was generated using voice recognition software. It may contain grammatical, syntax or spelling errors. Electronically signed by: Garry Jiménez M.D. 02/21/2018 6:34 AM Dictated Date/Time: 02/21/2018 6:34 AM
[2018-02-22 13:07] LABS: EBV EARLY ANTIGEN AB < 9.00 U/ML
== END 2018-02-21 04:28 | disposition home or self-care (01) ==
LOC: C.EDB 02:01
DX: J02.9 Acute pharyngitis, unspecified (principal); E86.0 Dehydration; R09.81 Nasal congestion; Z87.440 Personal history of urinary (tract) infections; Z97.5 Presence of (intrauterine) contraceptive device; Z79.899 Other long term (current) drug therapy; Z88.1 Allergy status to other antibiotic agents; Z88.8 Allergy status to other drugs, medicaments and biological substances

== ENCOUNTER 2018-03-08 19:36 | Emergency (ER) | payer OTHER ==
[~2018-03-08] VITALS: Ht 172.7 cm; Wt 136.7 kg
[~2018-03-08 19:36] MED LIST changes: +ABL/5 PO; -CYCL10TA6 PO; +ESCI1TAB10 PO; -LXP10 PO; +TOPI25TA99 PO; -ULT50 PO; -ZOLP10TA6 PO
[2018-03-08 19:41] VITALS: TEMP 36.7; Ht 172.7 cm; Wt 136.7 kg
[2018-03-08] MEDS ORDERED: OXYCODONE IR HOME PACK PO STA (19:54)
[2018-03-08] MEDS ORDERED: MoRPHine SULFATE 10 MG/ML CARP/VIAL IM STA (19:54)
[2018-03-08] MEDS ORDERED: OXYC1TAB3 PO (19:58)
[2018-03-08] MEDS ORDERED: METH4PAK PO (20:00)
--- NOTE | 2018-03-08 20:01 | EMERGENCY ROOM VISIT NOTE ---
ED Visit Note First contact with patient: 19:46 CHIEF COMPLAINT: Low back pain HISTORY OF PRESENT ILLNESS: This 32-year-old female patient presents to the emergency department via private vehicle complaining of pain in the low back which began earlier today while at home after lifting heavy objects. The pain was gradual in onset, is now constant and worse with movement. The patient notes the pain as sharp and radiating down both posterior legs and a 9/10. The patient has taken Flexeril, to Tylenol, additional Flexeril, ibuprofen and heating pad without relief of the pain. The patient denies any loss of control of their bowel or bladder functions. There has been no leg numbness or weakness , and no change in sensation. No nausea or vomiting or abdominal pain. No chest pain or shortness of breath. The patient has had prior back injuries. No dysuria or increased urinary frequency. REVIEW OF SYSTEMS: A review of systems was performed with positives and pertinent negatives listed in the history of present illness. All other systems were reviewed and are negative. ALLERGIES: As noted below MEDICATIONS: As noted below PMH: Previous back disc bulge/injury SOCIAL HISTORY: Patient lives locally PHYSICAL EXAM: VITALS: Vitals are noted on the nurse's note and reviewed by myself. Vital signs stable. GENERAL: 32-year-old female, in no acute distress, nondiaphoretic, well- developed well-nourished. SKIN: The skin was without rashes, erythema, edema, or bruising. ABDOMEN: Soft, nontender, without masses or organomegaly. MUSCULOSKELETAL: No muscle atrophy, erythema, or edema noted of the back. There is minimal tenderness over the lumbar spinous processes. There is positive tenderness over the paraspinous muscles of the lumbar spine. There is no tenderness over the thoracic spine or paraspinous muscles. There are no muscle spasms present. NEURO: Patient was alert and oriented to person place and time. Normal sensation to light and sharp touch. Deep tendon reflexes 2+ in the lower extremities. Strength 5/5 and equal in the bilateral lower extremities. EMERGENCY DEPARTMENT COURSE: Patient was seen and evaluated as above. Vital signs stable. She is nontoxic on exam. She is able to ambulate. She has back pain that began after heavy lifting. She has a known disc bulge at L4-L5/ history of that. I do not believe that imaging is warranted secondary to the being no trauma. No evidence of cauda equina on exam. She is already tried numerous [id number] medications and Flexeril without relief. She was given morphine IM here and a prescription for oxycodone. I was going to provide her more Flexeril but given her other medications do not want to cause interaction. She will not be driving at this time. Risks regarding medications were discussed. She no longer is taking the contrave. Patient is to follow with her family doctor or return with worsening. She was educated upon management, educated upon worrisome symptoms which to return, had questions in spite of discharge, and was discharged home in good condition. She will also be given a short course of steroids Via Medrol Dosepak which the patient notes she can tolerate but not prednisone. In the evaluation and treatment of this patient the following differential diagnoses were obtained: Fracture, dislocation, cauda equina syndrome, acute abdomen, UTI, , among others. Current/Historical Medications Scheduled Aripiprazole (Abilify), 5 MG PO DAILY Diltiazem Hcl Coated Beads (Cartia Xt), 240 MG PO DAILY Escitalopram Oxalate (Lexapro), 20 MG PO DAILY Fluticasone Propionate (Flovent Hfa), 2 PUFFS INH BID Topiramate (Topamax ), 25 MG PO BID Scheduled PRN Albuterol Hfa (Ventolin Hfa), 2 PUFFS INH Q4H PRN for SOB/Wheezing Fluticasone Propionate (Nasal) (Flonase Allergy Relief), 2 SPRAYS DIAMOND DAILY PRN for Nasal Congestion Loratadine (Claritin), 10 MG PO DAILY PRN for Allergy Symptoms Lorazepam (Ativan), 0.5 MG PO DAILY PRN for Prior to Dental Appointment Allergies Coded Allergies: Cephalexin (Verified Allergy, Unknown, hives, 03/08/18) Prednisone (Verified Allergy, Unknown, SVT, 03/08/18) Vital Signs Date Time Temp Pulse Resp B/P (MAP) Pulse Ox O2 Delivery O2 Flow Rate FiO2 03/08/18 20:56 105 141/94 96 03/08/18 19:41 36.7 94 18 132/92 97 Room Air Medications Administered Medications (Trade) Dose Ordered Sig/Kenney Route Start Time Stop Time Status Last Admin Dose Admin Morphine Sulfate (MoRPHine SULFATE INJ) 10 mg NOW STAT IM 03/08/18 19:54 03/08/18 19:56 DC 03/08/18 20:07 10 MG Oxycodone HCl (Roxicodone Immediate Rel 5MG Home Pack) 1 homepack UD STAT PO 03/08/18 19:54 03/08/18 19:56 DC 03/08/18 20:43 1 HOMEPACK Departure Information Impression Primary Impression: Low back pain Dispostion Home / Self-Care Condition GOOD Referrals Tyrese Greenfield M.D. (PCP) Patient Instructions My [facility] Additional Instructions You have been treated in the Emergency Department for Back Pain. You have received pain medicine in the emergency department which impairs your ability to operate a vehicle. It is illegal for you to drive after receiving these medicines. You have been prescribed Oxy IR to be used for pain control. This is a narcotic medication. You cannot drive or consume alcohol while on this medicine. This medicine should only be used for pain that cannot be controlled with over-the- counter pain medicines. You have been prescribed a Medrol Dosepak. Take this medication as prescribed. You should take the COMPLETE 6-day course of this medication. This is an anti- inflammatory medicine that will help to minimize your symptoms. For pain control, you can use the following kjep-sao-frlasra medicines (if >12 yo): - Regular strength (325mg/tab) Tylenol (acetaminophen) 2 tabs every 4-6 hours as needed. Do not exceed 12 tablets in a 24 hour period. Avoid taking more than 3 grams (3000 mg) of Tylenol per day. This includes any other sources of acetaminophen you may take on a regular basis. - Regular strength (200 mg/tab) Advil (ibuprofen) 1-2 tabs every 4-6 hours as needed. Do not exceed a dose of 3200 mg per day. If this is an acute injury, ice can be applied to the area of pain for the first 3 days to help decrease pain and inflammation. After the first 3 days, a heating pad can be used over the area for continued soothing relief. You should schedule a follow-up appointment in 2-3 days with your Primary Care Provider for further evaluation and treatment of your back pain. Return to the Emergency Department if your current symptoms worsen despite treatment course outlined above, or if you develop any of the following symptoms : intractable pain despite aforementioned treatment course, loss of control of your bowel or bladder, numbness or tingling in your groin, or development of a fever.
[2018-03-08 20:56] VITALS: BP 141/94; PULSE 105; O2SAT 96
== END 2018-03-08 20:54 | disposition home or self-care (01) ==
LOC: C.EDB 19:38 → C.EDD 20:54
DX: M54.5 Low back pain (principal); Z88.8 Allergy status to other drugs, medicaments and biological substances; Z87.39 Personal history of other diseases of the musculoskeletal system and connective tissue; Z88.1 Allergy status to other antibiotic agents

== ENCOUNTER 2021-08-25 07:34 | Inpatient (IN) ==
[2021-08-25] MEDS ORDERED: SODIUM CHLORIDE 0.9% 1000ML 1,000 ML IV ONE (08:00)
[2021-08-25] MEDS ORDERED: HYDROmorphone INJ 1 MG/ML SYRINGE IV STA (08:00)
[2021-08-25] MEDS ORDERED: ONDANSETRON INJ 2 MG/ML 2 ML VIAL IV STA (08:00)
[2021-08-25] MEDS ORDERED: dexAMETHasone**PF** 10 MG/ML VIAL IV ONE (08:29)
--- NOTE | 2021-08-25 08:40 | Emergency Department Note ---
History of Present Illness General Chief complaint: Back Injury/Pain Stated complaint: BACK PAIN Time Seen by Provider: 08/25/21 07:43 History of Present Illness Maximum Pain Intensity: 8 36-year-old female who presents to the emergency department for evaluation of intractable lower back pain. The patient also reports pain radiating down her legs, left worse than right. The patient reports that she has a history of chronic back issues secondary to recurrent lumbar disc herniations. The patient underwent a revision discectomy of L4-[address] Valdez at [facility] in May 2019. The patient was told that she would eventually need a fusion at that level. The patient reports that she has also followed with Dr. Mckee for her back. The patient reports prior history of vagal episode with prior epidural steroid injections, and Dr. Mckee was hesitant to perform any additional ESIs. The patient recently finished a course of steroids, and has been taking oxycodone twice daily as prescribed by her PCP. The patient reports that her back pain is now significantly affecting her activities of daily living. She cannot tolerate the pain anymore. She called her family doctor who recommended that she come to the emergency department for further reevaluation and pain management. The patient reports that her care was referred to Dr. Watkins's office. The patient also had a recent MRI performed at [facility] less than a month ago. Her MRI was reviewed with her by Dr. Mckee. The patient denies any current bladder/bowel incontinence, saddle anesthesias or foot drop. She rates her discomfort an 8 out of 10. Home Medications Medication Instructions Recorded Confirmed Type albuterol sulfate 90 mcg/actuation 2 puff INHALATION Q4H PRN 07/08/18 08/25/21 History aerosol inhaler (Ventolin HFA) fluticasone propionate 50 2 spray INTRANASAL DAILY PRN 07/08/18 08/25/21 History mcg/actuation nasal spray,suspension (Flonase Allergy Relief) sumatriptan succinate 25 mg tablet 25 mg PO Q2H PRN #7 tab 04/17/20 08/25/21 Rx (Imitrex) multivitamin with minerals 1 tab PO QAM 05/20/20 08/25/21 History (Hair,Skin and Nails) acetaminophen 500 mg tablet 1,000 mg PO TID 08/05/20 08/25/21 History (Tylenol Extra Strength) ondansetron 4 mg disintegrating 4 mg PO Q8H PRN #30 tab 10/19/20 08/25/21 Rx tablet diltiazem HCl 120 mg 120 mg PO QAM #90 cap 01/04/21 08/25/21 Rx capsule,extended release 24 hr fluticasone 500 mcg-salmeterol 50 1 inh INHALATION Q12H #3 inhaler 01/04/21 08/25/21 Rx mcg/dose blistr powdr for inhalation (Advair Diskus) omeprazole 40 mg capsule,delayed 40 mg PO QAM #90 cap 01/04/21 08/25/21 Rx release topiramate 50 mg tablet (Topamax) 50 mg PO BID #180 tab 01/04/21 08/25/21 Rx zolpidem 10 mg tablet (Ambien) 10 mg PO .qhs #30 tab 01/04/21 08/25/21 Rx norgestimate 0.25 mg-ethinyl 1 tab PO QAM 02/18/21 08/25/21 History estradiol 35 mcg tablet (Sprintec (28)) Saccharomyces boulardii 250 mg 250 mg PO BID 04/01/21 08/25/21 History capsule (Florastor) fluticasone furoate 200 1 inh INHALATION QAM 04/01/21 08/25/21 History mcg-vilanterol 25 mcg/dose inhalation powder (Breo Ellipta) umeclidinium 62.5 mcg/actuation 1 inh INHALATION DAILY 04/01/21 08/25/21 History blister powder for inhalation (Incruse Ellipta) gabapentin 600 mg tablet 600 mg PO TID 04/26/21 08/25/21 History oxycodone 5 mg tablet 5 - 10 mg PO Q6H PRN #20 tab 04/26/21 08/25/21 Rx bisacodyl 5 mg tablet 15 mg PO DAILY PRN 08/25/21 08/25/21 History cetirizine 10 mg tablet (Zyrtec) 10 mg PO HS 08/25/21 08/25/21 History cyclobenzaprine 10 mg tablet 10 mg PO TID PRN 08/25/21 08/25/21 History magnesium 250 mg tablet 250 mg PO DAILY 08/25/21 08/25/21 History metformin 500 mg tablet,extended 500 mg PO QAM 08/25/21 08/25/21 History release 24 hr montelukast 10 mg tablet 10 mg PO HS 08/25/21 08/25/21 History (Singulair) polyethylene glycol 3350 17 gram 17 g PO DAILY 08/25/21 08/25/21 History oral powder packet (Miralax) promethazine 25 mg tablet 25 mg PO Q6H PRN 08/25/21 08/25/21 History Allergies Allergy/AdvReac Type Severity Reaction Status Date / Time prednisone Allergy Severe SVT Verified 08/25/21 09:05 cephalexin Allergy Intermediate hives Verified 08/25/21 09:05 Past Med/Surg History Medical History Anxiety and depression Asthma LAST USED RESCUE INHALER>JANUARY 2021 C. difficile colitis BEING TREATED WITH VANCO CURRENTLY (MOST RECENT TEST NEGATIVE) Cyst of left ovary Depression Enlarged liver Environmental allergies Fatty infiltration of liver GERD (gastroesophageal reflux disease) H/O supraventricular tachycardia History of TMJ disorder "NOT A CURRENT ISSUE" Insomnia Lactose intolerance Lumbar radiculopathy Migraine Morbid obesity Neuropathy Obesity PAC (premature atrial contraction) Paroxysmal SVT (supraventricular tachycardia) Prediabetes Sleep apnea Type 2 diabetes mellitus Surgical History H/O laminectomy Performed 04/12/2019 at [facility] by Dr Frazier History of anesthesia reaction WOKE IN BETWEEN SURGERIES FOR KNEE AND WISDOM TEETH (AGE [age]) History of tonsillectomy and adenoidectomy Hx of right knee surgery [place] teeth extracted Family History Grandmother (Maternal) Cervical cancer Ovarian cancer Colorectal cancer Colonic polyp Father Myocardial infarction Family history of diabetes mellitus Other No family history of adverse response to anesthesia No pertinent family history Denies family history of Breast cancer Stroke Social History Smoking Status: Former smoker Tobacco Type: Cigarettes Second Hand Exposure: Yes ( A CHILD); Hx Alcohol Use: Yes Preferred Language: Vietnamese Communication Ability: Effective Visual Impairment: No Limitations Hearing Ability: Normal Psychologist Clinical Required: No Beliefs That Will Affect Care: None marital status: Life Partner Current Living Situation: Significant Other Current Living Situation Comment: WITH BOYFRIEND current occupational status: employed 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 Other Information That Helps Us Care for You: No Feels Safe at Home: Yes Safety Concerns: Feels Safe At This Time Childhood Exposure to Second-Hand Smoke: Yes Dental Care, Regularly: Yes Physical Activity Frequency: Does not Exercise Seatbelt Use: always Assistive Devices: None Review of Systems 10 system review was performed and was negative except for pertinent positives and negatives as indicated in history of present illness Physical Exam Vital Signs Vital Signs - 24 hr 08/25/21 07:40 Temperature 36.8 C Temperature Source Oral Pulse Rate 112 H Pulse Rhythm Regular Pulse Strength Normal Respiratory Rate 20 Respiratory Effort / Characteristics Non-Labored Spontaneous Respiratory Depth Normal Respiratory Pattern Regular Blood Pressure 143/99 H Blood Pressure Mean 113 Blood Pressure Position Sitting Pulse Oximetry 96 Oxygen Delivery Method Room Air Sepsis Recent Fever Within 48 Hours No Sepsis New/Unexplained Change in Mental Status No Sepsis Action Taken by Nursing No Action Required CONSTITUTIONAL: Morbidly obese female in moderate distress. HEENT: No scleral icterus or conjunctival injection. RESPIRATORY: Clear to auscultation bilaterally with no wheezing, crackles, rhonchi or stridor. CARDIOVASCULAR: Regular rate and rhythm with no murmurs, rubs or gallops. GASTROINTESTINAL: Bowel sounds present in all quadrants. Soft and nontender to palpation. MUSCULOSKELETAL: Patient has generalized tenderness to palpation through the lower lumbar region and SI joints. Negative logroll bilaterally. Positive straight leg raise with crossover. Ankle plantar/dorsiflexion strength is 4 out of 5 and symmetric bilaterally. Pedal pulses are intact. INTEGUMENTARY: No rash or other significant dermatologic conditions noted. HEMATOLOGIC: No ecchymosis or petechiae. PSYCHIATRIC: Positive affect. NEUROLOGIC: Deep tendon reflexes are 2+ and symmetric bilaterally. Patient has a mild gross decrease sensation to the lower extremities bilaterally. Course Course Patient history and physical exam were performed. Nurses notes were reviewed. Vital signs were reviewed, showing an elevated blood pressure 143/99. Patient is also mildly tachycardic at 112 bpm. I also reviewed prior medical records, including a recent visit to our emergency department on 08/03/21 for back pain. It is noted that the patient had an MRI performed the same day. Also reviewed an operative note from Dr. Robledo from 05/17/2019, showing that the patient underwent a revision discectomy at L4-5 secondary to massive recurrent disc herniations, with her last herniation migrating down and distally behind the vertebral body, causing severe compression of the nerve root. I was not able to access the patient's recent MRI report. I did explain and recommended IV access in order to provide best pain control, as well as to draw labs for anticipated admission. The patient was in agreement. IV access was established, and labs were drawn. The patient was hydrated with a liter normal saline, and administered IV Dilaudid, Zofran and Decadron. In the meantime, I consulted Dr. Watkins, who reviewed the patient's MRI and office notes, and recommended admission for anticipated operative fusion once medical clearance has been received. Dr. Watkins has agreed to perform the admission. This information was relayed to the patient, who was relieved and happy with this decision. Further review of labs shows a moderate leukocytosis with left shift and bandemia. Sed rate and CRP were elevated. CMP was otherwise grossly normal. Urine was negative. COVID-19 PCR was also negative. The case was further discussed with Dr. Watkins, who agrees to admit the patient. The patient was administered an additional dose of IV Dilaudid for her pain prior to transfer of care. Please see Dr. Watkins's dictation for further treatment and final disposition. Administered Medications Gabapentin (Gabapentin 600 Mg Tab) 600 mg PO TID LUCRETIA Stop: 09/24/21 15:29 Last Admin: 08/25/21 16:04 Dose: 600 mg Documented by: [id number] Hydromorphone HCl (Hydromorphone Inj 1 Mg/Ml Syringe) 1 mg IV Q3H PRN PRN Reason: severe pain (scale 7-10) Stop: 09/08/21 14:41 Last Admin: 08/25/21 15:07 Dose: 1 mg Documented by: [id number] Sodium Chloride (Nss 1000ml) 1,000 mls @ 100 mls/hr IV .Q10H LUCRETIA Stop: 09/24/21 14:41 Last Admin: 08/25/21 15:04 Dose: 100 mls/hr Documented by: [id number] Magnesium Hydroxide (Magnesium Hydroxide Susp 30 Ml Udc) 30 ml PO Q24H PRN PRN Reason: Constipation Stop: 09/24/21 14:41 Last Admin: 08/25/21 16:09 Dose: 30 ml Documented by: [id number] Miscellaneous (Norgestimate/Ethinyl Estrad 0.25/0.035mg ~ Order Awaiting Action) 1 ea N/A QS [facility]; Protocol Stop: 09/24/21 15:59 Last Admin: 08/25/21 15:10 Dose: Not Given Documented by: [id number] Tramadol HCl (Tramadol Hcl 50 Mg Tablet) 50 - 100 mg PO Q4H PRN PRN Reason: Moderate-Severe pain & Pre PT Stop: 09/24/21 14:41 Last Admin: 08/25/21 16:09 Dose: 50 mg Documented by: [id number] Discontinued Medications Dexamethasone Sodium Phosphate (DexamethasonePf 10 Mg/Ml Vial) 10 mg IV NOW ONE Stop: 08/25/21 08:30 Last Admin: 08/25/21 08:50 Dose: 10 mg Documented by: [id number] Diltiazem HCl (Diltiazem Hcl 120 Mg Capcr) [facility] [place] Stop: 09/24/21 15:59 Last Admin: 08/25/21 16:04 Dose: 120 mg Documented by: [id number] Hydromorphone HCl (Hydromorphone Inj 1 Mg/Ml Syringe) 1 mg IV NOW STA Stop: 08/25/21 08:01 Last Admin: 08/25/21 08:51 Dose: 1 mg Documented by: [id number] Hydromorphone HCl (Hydromorphone Inj 0.5 Mg/0.5 Ml Syr) 0.5 mg IV Q1H PRN PRN Reason: Pain Stop: 09/08/21 09:46 Last Admin: 08/25/21 13:41 Dose: 0.5 mg Documented by: [id number] Admin: 08/25/21 11:46 Dose: 0.5 mg Documented by: [id number] Admin: 08/25/21 10:18 Dose: 0.5 mg Documented by: [id number] Sodium Chloride (Nss 1000ml) 1,000 mls @ 999 mls/hr IV .Q1H1M ONE Stop: 08/25/21 09:00 Last Infusion: 08/25/21 10:00 Dose: 0 mls/hr Documented by: [id number] Admin: 08/25/21 08:52 Dose: 999 mls/hr Documented by: [id number] Ondansetron HCl (Ondansetron Inj 2 Mg/Ml 2 Ml Vial) 4 mg IV NOW STA Stop: 08/25/21 08:01 Last Admin: 08/25/21 08:48 Dose: 4 mg Documented by: [id number] Medical Decision Making Medical Records Attestation: I reviewed the patient's medical records. Home Medications Current Medication List: was personally reviewed by me Laboratory Data Attestation: I reviewed the patient's lab results. Result diagrams: 08/25/21 08:35 08/25/21 08:35 Blood Pressure Blood Pressure Findings: Normal blood pressure MDM Narrative Patient presents the emergency department after failing outpatient management for history of lumbar degenerative disc disease with recurrent disc herniation of the lower lumbar spine. It is noted that the patient has an extra lumbar vertebrae. The patient did have a recent MRI that was unremarkable according to the patient; I was unable to review the MRI as it was not performed within the [facility]. Dr. Watkins was able to review MRI studies, and has agreed with admission and postoperative management. The patient has been treated with corticosteroids and opioid analgesics without relief. According to Dr. Mckee, the patient also is not amenable to further epidural steroid injections. Patient denies any recent trauma to warrant recurrent imaging since her last MRI less than a month ago. Patient also denies history to suggest spinal abscess or hematoma. Impression & Plan Intractable neuropathic pain of lumbosacral origin, History of herniated interv ertebral disc Discharge Plan Visit Data Chief Complaint: Back Injury/Pain Stated Complaint: BACK PAIN ED Provider: Pierre Salazar ED Midlevel Provider: Jadiel Best Discharge Problem: Intractable neuropathic pain of lumbosacral origin, History of herniated intervertebral disc Patient Disposition: Admitted As Inpatient Discharge Instructions Interventions: ED Discharge Assessment Last Done: 08/25/21 14:22
[2021-08-25 08:49] LABS: Basophils # (auto) 0.06 K/uL (0-0.2); Basophils % (auto) 0.4 %; Eosinophils # (auto) 0.27 K/uL (0-0.5); Eosinophils % (auto) 1.9 %; Hematocrit (blood only) 40.3 % (37-47); Hemoglobin 13.4 g/dL (12.0-16.0); Immature Granulocytes # (auto) 0.05 K/uL (0.00-0.02); Immature Granulocytes % (auto) 0.3 %; Lymphocytes # (auto) 3.04 K/uL (1.2-3.4); Mean Corpuscular Hemoglobin 28.2 pg (25-34); Mean Corpuscular Hgb Conc 33.3 g/dL (32-36); Mean Corpuscular Volume 84.8 fL (80-100); Mean Platelet Volume 8.8 fL (7.4-10.4); Monocytes # (auto) 0.74 K/uL (0.11-0.59); Monocytes % (auto) 5.1 %; Neutrophils # (auto) 10.34 K/uL (1.4-6.5); Neutrophils % (auto) 71.3 %; Platelet Count 366 K/uL (130-400); RDW Coefficient of Variation 14.1 % (11.5-14.5); RDW Standard Deviation 43.9 fL (36.4-46.3); Red Blood Count 4.75 M/uL (4.2-5.4)
[2021-08-25 09:08] LABS: Albumin Level 2.8 gm/dl (3.4-5.0); BUN Creatinine Ratio 18.8 (10-20); Creatinine Clr Calc Pharmacy 165.9 ml/min; Est GFR (African American) 130.1 ml/min; Est GFR (Non-African American) 112.3 ml/min; Potassium 3.7 mmol/L (3.5-5.1)
[2021-08-25 09:11] LABS: Albumin Globulin Ratio 0.7 (0.9-2); Bilirubin,Total 0.3 mg/dl (0.2-1); C Reactive Protein 2.42 mg/dl (0-0.29); Total Protein 6.8 gm/dl (6.4-8.2)
[2021-08-25] MEDS: HYDROmorphone INJ 0.5 MG/0.5 ML SYR IV PRN ×3 (10:18→13:41)
[2021-08-25] MEDS ORDERED: ACETAMINOPHEN 1,000 MG/100 ML VIAL IV PRN (14:42)
[2021-08-25] MEDS ORDERED: ONDANSETRON 4 MG OD TAB PO PRN (14:42)
[2021-08-25] MEDS ORDERED: FLUTICASONE PROPIONATE NA SPR 16 GM BTL PRN (14:42)
[2021-08-25] MEDS ORDERED: PHARMACY GLYCEMIC MGMT CONSULT PRN (14:42)
[2021-08-25] MEDS ORDERED: LORazepam 0.5 MG/1 ML VIAL IV PRN (14:42)
[2021-08-25] MEDS ORDERED: hydrOXYzine HCl 25 MG TAB PO PRN (14:42)
[2021-08-25] MEDS ORDERED: ALUMINUM/MAGNESIUM SUSP 30 ML UDC PO PRN (14:42)
[2021-08-25] MEDS ORDERED: diphenhydrAMINE Capsule 25 MG CAP PO PRN (14:42)
[2021-08-25] MEDS ORDERED: PROMETHAZINE HCL 12.5 MG in SODIUM CHLORIDE 0.9% 50 ML IV PRN (14:42)
[2021-08-25] MEDS ORDERED: METOCLOPRAMIDE HCL INJ 5 MG/ML 2 ML VIAL IV PRN (14:42)
[2021-08-25] MEDS ORDERED: MAGNESIUM HYDROXIDE SUSP 30 ML UDC PO PRN (14:42)
[2021-08-25] MEDS ORDERED: LORazepam 0.5 MG TAB PO PRN (14:42)
[2021-08-25] MEDS ORDERED: HYDROmorphone INJ 0.5 MG/0.5 ML SYR IV PRN (14:42)
[2021-08-25] MEDS ORDERED: NALOXONE HCL 0.4 MG/1 ML VIAL/CARP IV PRN (14:42)
[2021-08-25] MEDS ORDERED: ACETAMINOPHEN 500 MG TAB PO PRN (14:42)
[2021-08-25] MEDS: SODIUM CHLORIDE 0.9% 1000ML 1,000 ML IV SCH (15:04)
[2021-08-25] MEDS: HYDROmorphone INJ 1 MG/ML SYRINGE IV PRN ×2 (15:07→21:41)
--- NOTE | 2021-08-25 15:10 | Hospitalist Consultation ---
Date of Consultation August 25, 2021 Assessment & Plan (1) Intractable neuropathic pain of lumbosacral origin: - Admitted to Dr. Watkins for surgical procedure tomorrow morning. S/p 2 previous back surgeries in 2019. - Pain management, bowel regimen and DVT ppx per the primary team - PT/OT consults - Follow am CBC to monitor for acute blood loss (2) Type 2 diabetes mellitus: - Glycemic pharmacy consulted - A1C 6.1 on 08/17/21 - Hold metformin while here and use ISS with accuchecks achs or Q6H while NPO. (3) Constipation: -Bowel regimen ordered - last BM 2 days ago, will use prns today to promote BM prior to surgery if possible. Use milk of mag if needed tomorrow morning. - Pt notes having colonoscopy in March [address] Maria Antonia Galan, possible mass noted on imaging measuring 3-4 cm from the anal verge. Pt was supposed to have lower endoscopic ultrasound performed in May but did not get this done. She had previously had bought of c.diff and completed course of treatment, but did not want to do a prep again in May because her symptoms had improved/ did not want to exacerbate issues again. - Encourage colonoscopy/ultrasound workup as outpatient after hospital stay. (4) GERD (gastroesophageal reflux disease): - Continue omeprazole 40 mg daily (5) Depression: -Continue gabapentin, Topamax, zolpidem for sleep - topamax for migraine control. (6) Anxiety: -Medication as above (7) Morbid obesity: -Diet and exercise to be encouraged throughout hospital stay (8) PAC (premature atrial contraction): - Hs of such, stable. Missed cardizem today. Will resume. (9) Hypertension: - Continue cardizem, give dose tonight due to tachycardia (10) Environmental allergies: - uses albuterol prn, Breo Ellipta routinely, has Rx for Incruse Ellipta but reports intolerable taste, and therefore the patient hasn't used it in over 2 weeks. Encouraged her to use this and rinse mouth afterwards. Follows with pulm as an outpatient. DVT ppx: - teds, scds CODE: Full code Dispo: From home, likely to remain in the hospital x 1-2 days. DC per primary team. Thank you for involving us in the care of Ms. Castillo. Please do not hesitate to call with questions or concerns. At this time medicine service will follow along. Supervising Physician Co-Signing Physician Notes Attending Addendum: delayed entry date of service noted above care coordinated with RUTH ANN Medina please refer to her notes for full details, I agree with her notes patient seen and examined, records reviewed by myself as well on exam, patient resting bedside chair, comfortable, not in distress Has intermittent back pain, relieved by pain medication Has intermittent radiculopathy pain on the left lower extremity no chest pain, dyspnea, palpitations, dizziness no other symptoms VS noted and reviewed oriented x3, not in distress, speaks in sentences with no effort nor accessory muscle use Tachycardic at 120s, regular rhythm, no murmurs clear breath sounds bilaterally non distended, soft, nontender no bipedal edema, erythema, warmth no neuro deficits WBC 14.5 Hg 13.4 Crea 0.7 ASSESSMENT AND PLAN Lumbar spine stenosis, L4-L5 For planned decompression fusion surgery tomorrow No medical contraindication to proceed with surgery Patient mild to moderate risk for cardiopulmonary complications given current comorbidities History of PACs Tachycardia to 120s likely secondary to missing Cardizem dose, pain Continue Cardizem IV fluids Monitor closely other diagnoses and plan of care as per RUTH ANN Medina's notes Johnathan Sanchez MD History of Present Illness Reason for Consultation: Medical management Requesting Physician: Dr. Watkins Attending Physician: Keo Watkins, History of Present Illness This is a 36-year-old female with PMHx of DM type II, obesity, neuropathy, GERD, depression and anxiety with history of revision discectomy L4-5 in May 2019 at [facility] by Dr. Valdez. Patient also follows with Dr. Mckee with pain management as an outpatient, previously going through epidural steroid injections. Patient recently finished a dose pack of steroids, but has required use of multiple steroid tapers in the past few months. She is using oxycodone twice daily as prescribed by her family physician. She recently had MRI imaging of her back within the past month at [facility]. Her back pain is located in the low back, buttocks region bilaterally, numbness into the lateral thigh and calf bilaterally. She has worse pain in her right lower back and hip and greater left lateral thigh numbness. Denies any bowel or bladder dysfunction, but did report some occasional constipation due to oxycodone use. Her last BM was 2 days ago. Pt presented to the ER for intractable pain for possible procedure per Dr. Watkins. Anticipated surgery tomorrow per Dr. Watkins, discussed with him at bedside. Allergies Allergy/AdvReac Type Severity Reaction Status Date / Time cephalexin Allergy Intermediate hives Verified 08/25/21 09:05 Home Medications Medication Instructions Recorded Confirmed Type albuterol sulfate 90 mcg/actuation 2 puff INHALATION Q4H PRN 07/08/18 08/25/21 History aerosol inhaler (Ventolin HFA) fluticasone propionate 50 2 spray INTRANASAL DAILY PRN 07/08/18 08/25/21 History mcg/actuation nasal spray,suspension (Flonase Allergy Relief) sumatriptan succinate 25 mg tablet 25 mg PO Q2H PRN #7 tab 04/17/20 08/25/21 Rx (Imitrex) multivitamin with minerals 1 tab PO QAM 05/20/20 08/25/21 History (Hair,Skin and Nails) acetaminophen 500 mg tablet 1,000 mg PO TID 08/05/20 08/25/21 History (Tylenol Extra Strength) ondansetron 4 mg disintegrating 4 mg PO Q8H PRN #30 tab 10/19/20 08/25/21 Rx tablet diltiazem HCl 120 mg 120 mg PO QAM #90 cap 01/04/21 08/25/21 Rx capsule,extended release 24 hr fluticasone 500 mcg-salmeterol 50 1 inh INHALATION Q12H #3 inhaler 01/04/21 08/25/21 Rx mcg/dose blistr powdr for inhalation (Advair Diskus) omeprazole 40 mg capsule,delayed 40 mg PO QAM #90 cap 01/04/21 08/25/21 Rx release topiramate 50 mg tablet (Topamax) 50 mg PO BID #180 tab 01/04/21 08/25/21 Rx zolpidem 10 mg tablet (Ambien) 10 mg PO .qhs #30 tab 01/04/21 08/25/21 Rx norgestimate 0.25 mg-ethinyl 1 tab PO QAM 02/18/21 08/25/21 History estradiol 35 mcg tablet (Sprintec (28)) Saccharomyces boulardii 250 mg 250 mg PO BID 04/01/21 08/25/21 History capsule (Florastor) fluticasone furoate 200 1 inh INHALATION QAM 04/01/21 08/25/21 History mcg-vilanterol 25 mcg/dose inhalation powder (Breo Ellipta) umeclidinium 62.5 mcg/actuation 1 inh INHALATION DAILY 04/01/21 08/25/21 History blister powder for inhalation (Incruse Ellipta) gabapentin 600 mg tablet 600 mg PO TID 04/26/21 08/25/21 History oxycodone 5 mg tablet 5 - 10 mg PO Q6H PRN #20 tab 04/26/21 08/25/21 Rx bisacodyl 5 mg tablet 15 mg PO DAILY PRN 08/25/21 08/25/21 History cetirizine 10 mg tablet (Zyrtec) 10 mg PO HS 08/25/21 08/25/21 History cyclobenzaprine 10 mg tablet 10 mg PO TID PRN 08/25/21 08/25/21 History magnesium 250 mg tablet 250 mg PO DAILY 08/25/21 08/25/21 History metformin 500 mg tablet,extended 500 mg PO QAM 08/25/21 08/25/21 History release 24 hr montelukast 10 mg tablet 10 mg PO HS 08/25/21 08/25/21 History (Singulair) polyethylene glycol 3350 17 gram 17 g PO DAILY 08/25/21 08/25/21 History oral powder packet (Miralax) promethazine 25 mg tablet 25 mg PO Q6H PRN 08/25/21 08/25/21 History Patient History Medical History Anxiety and depression Asthma LAST USED RESCUE INHALER>JANUARY 2021 C. difficile colitis BEING TREATED WITH VANCO CURRENTLY (MOST RECENT TEST NEGATIVE) Cyst of left ovary Depression Enlarged liver Environmental allergies Fatty infiltration of liver GERD (gastroesophageal reflux disease) H/O supraventricular tachycardia History of TMJ disorder "NOT A CURRENT ISSUE" Insomnia Lactose intolerance Lumbar radiculopathy Migraine Morbid obesity Neuropathy Obesity PAC (premature atrial contraction) Paroxysmal SVT (supraventricular tachycardia) Prediabetes Sleep apnea Type 2 diabetes mellitus Surgical History H/O laminectomy Performed 04/12/2019 at [facility] by Dr Frazier History of anesthesia reaction WOKE IN BETWEEN SURGERIES FOR KNEE AND WISDOM TEETH (AGE [age]) History of tonsillectomy and adenoidectomy Hx of right knee surgery [place] teeth extracted Family History Grandmother (Maternal) Cervical cancer Ovarian cancer Colorectal cancer Colonic polyp Father Myocardial infarction Family history of diabetes mellitus Other No family history of adverse response to anesthesia No pertinent family history Denies family history of Breast cancer Stroke Social History Smoking Status: Former smoker Tobacco Type: Cigarettes Second Hand Exposure: Yes ( A CHILD); Hx Alcohol Use: Yes Preferred Language: Vietnamese Communication Ability: Effective Visual Impairment: No Limitations Hearing Ability: Normal 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: No Beliefs That Will Affect Care: None marital status: Life Partner Current Living Situation: Significant Other Current Living Situation Comment: WITH BOYFRIEND current occupational status: employed 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 Other Information That Helps Us Care for You: No Feels Safe at Home: Yes Safety Concerns: Feels Safe At This Time Childhood Exposure to Second-Hand Smoke: Yes Dental Care, Regularly: Yes Physical Activity Frequency: Does not Exercise Seatbelt Use: always Assistive Devices: None Review of Systems Review of Systems: Constitutional: No fever, sweats or chills Eyes: No diplopia, no worsening or blurred vision ENT: normal hearing, no trouble swallowing Respiratory: No cough, sputum, dyspnea at rest or on exertion Cardiovascular: No chest pain, tightness or palpitations Abdomen: No pain, nausea, vomiting, diarrhea or constipation Musculoskeletal: As per HPI, lower back and buttocks pain, R>L, thigh numbness L>R, no other joint pain, calf pain, or swelling Neurologic: + generalized lower extremity weakness, numbness/tingling as aformentioned, or balance problems, walks without assistive device, Hx of migraines Psychiatric: No anxiety or depression Skin: No rash or itch Physical Exam Physical Exam: General: awake, alert, no apparent distress, morbidly obese with BMI of 49.0 Head: Normocephalic, atraumatic ENT: PERRL, EOMI, no pharyngeal exudate, mucous membranes moist Chest: Clear to auscultation, on room air, no adventitious breath sounds Cardiac: Sinus tachycardia, no murmur, no JVD, normal peripheral pulses, good capillary refill Abdominal: Hypoactive BS x 4 quadrants, soft, mildly distended, nontender to palpation, no rebound or guarding Extremities: Normal inspection, no peripheral edema or erythema, calfs nontender to palpation Psych: Normal mood and affect Neuro: AAO x 3, strength intact bilaterally and rated 4/5 in BLE, 5/5 in upper extremities, no motor deficits, speech is clear, no peripheral sensory deficits Results & Data Results & Data ([facility]) Vital Signs (Past 12 Hours) Vital Signs Temp Pulse Pulse Resp BP BP Pulse Ox 08/25/21 14:54 36.6 C 112 H 18 136/80 96 08/25/21 14:00 114 H 17 94 08/25/21 13:30 115 H 16 94 08/25/21 13:00 105 H 20 120/73 94 08/25/21 12:30 114 H 19 93 08/25/21 12:00 104 H 20 105/67 94 08/25/21 11:30 104 H 16 94 08/25/21 11:00 105 H 24 94 08/25/21 10:30 98 H 18 127/75 93 08/25/21 10:00 95 H 16 125/86 95 08/25/21 09:30 100 H 21 115/80 97 08/25/21 09:00 99 H 19 117/79 97 08/25/21 07:40 36.8 C 112 H 20 143/99 H 96
[2021-08-25] MEDS ORDERED: NORGESTIMATE/ETHINYL ESTRAD 0.25/0.035MG DSPK PO SCH (15:30)
--- NOTE | 2021-08-25 15:42 | History & Physical Report ---
Date of Service August 25, 2021 Assessment & Plan (1) Neurogenic claudication due to lumbar spinal stenosis: Plan: This time patient had a steady decline in status markedly uncomfortable and presents with consistent neurologic decline. She does have evidence of rec urrent disc herniation L4-5 with bilateral foraminal disease has failed extensive course of nonoperative care and would require surgical invention to halt a progressive neurologic decline and improve her pain. Would require revision decompression with fusion L4-L5. Risk benefits pros cons and alternatives were outlined in detail. Risk include but not limited to anesthesia blindness stroke paralysis nerve damage blood loss requiring transfusion infection requiring reoperation benefits of the marked improvement of her pain in a time and her strength deficit. This time we will try to ontiveros rgery range performed as soon as possible. Admission and Anticipated Discharge Date Admission Date: August 25, 2021 History of Present Illness Chief Complaint: Back and bilateral leg pain Primary Care Provider: Tyrese Greenfield MD This is a 36-year-old female has a history of undergoing a previous back surgery in 2019. She underwent a laminectomy followed by a wider decompression several months later. She had done nicely afterwards but over the past 6 months has had a marked decline in status with lumbosacral back pain progressing now into the bilateral legs. It radiates to the buttocks posterior thigh into the feet prickly into the great toe. She acknowledges numbness tingling and weakness. It has been progressive. She is been emergency room several times secondary to severe pain. 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 She denies any loss of bowel or bladder control. Allergies Allergy/AdvReac Type Severity Reaction Status Date / Time prednisone Allergy Severe SVT Verified 08/25/21 09:05 cephalexin Allergy Intermediate hives Verified 08/25/21 09:05 Home Medications Medication Instructions Recorded Confirmed Type albuterol sulfate 90 mcg/actuation 2 puff INHALATION Q4H PRN 07/08/18 08/25/21 History aerosol inhaler (Ventolin HFA) fluticasone propionate 50 2 spray INTRANASAL DAILY PRN 07/08/18 08/25/21 History mcg/actuation nasal spray,suspension (Flonase Allergy Relief) sumatriptan succinate 25 mg tablet 25 mg PO Q2H PRN #7 tab 04/17/20 08/25/21 Rx (Imitrex) multivitamin with minerals 1 tab PO QAM 05/20/20 08/25/21 History (Hair,Skin and Nails) diphenhydramine HCl 25 mg tablet 50 mg PO HS PRN 07/02/20 08/25/21 History acetaminophen 500 mg tablet 1,000 mg PO TID 08/05/20 08/25/21 History (Tylenol Extra Strength) ondansetron 4 mg disintegrating 4 mg PO Q8H PRN #30 tab 10/19/20 08/25/21 Rx tablet diltiazem HCl 120 mg 120 mg PO QAM #90 cap 01/04/21 08/25/21 Rx capsule,extended release 24 hr fluticasone 500 mcg-salmeterol 50 1 inh INHALATION Q12H #3 inhaler 01/04/21 08/25/21 Rx mcg/dose blistr powdr for inhalation (Advair Diskus) omeprazole 40 mg capsule,delayed 40 mg PO QAM #90 cap 01/04/21 08/25/21 Rx release topiramate 50 mg tablet (Topamax) 50 mg PO BID #180 tab 01/04/21 08/25/21 Rx zolpidem 10 mg tablet (Ambien) 10 mg PO .qhs #30 tab 01/04/21 08/25/21 Rx norgestimate 0.25 mg-ethinyl 1 tab PO QAM 02/18/21 08/25/21 History estradiol 35 mcg tablet (Sprintec (28)) Saccharomyces boulardii 250 mg 250 mg PO BID 04/01/21 08/25/21 History capsule (Florastor) ascorbic acid 7.5 mg-vit E 7.5 1 tab PO QAM 04/01/21 08/25/21 History unit-biotin 1,250 mcg chewable tablet (Hair,Skin,Nails with Biotin) cholestyramine (with sugar) 4 gram 4 g PO DAILY PRN 04/01/21 08/25/21 History oral powder (Questran) fluticasone furoate 200 1 inh INHALATION QAM 04/01/21 08/25/21 History mcg-vilanterol 25 mcg/dose inhalation powder (Breo Ellipta) umeclidinium 62.5 mcg/actuation 1 inh INHALATION DAILY 04/01/21 08/25/21 History blister powder for inhalation (Incruse Ellipta) gabapentin 600 mg tablet 600 mg PO TID 04/26/21 08/25/21 History oxycodone 5 mg tablet 5 - 10 mg PO Q6H PRN #20 tab 04/26/21 08/25/21 Rx oxycodone-acetaminophen 5 mg-325 1 tab PO Q6H PRN #12 tab 08/03/21 08/25/21 Rx mg tablet (Percocet) benzonatate 100 mg capsule 100 mg PO TID 08/25/21 08/25/21 History cyclobenzaprine 10 mg tablet 10 mg PO TID PRN 08/25/21 08/25/21 History magnesium 250 mg tablet 250 mg PO DAILY 08/25/21 08/25/21 History metformin 500 mg tablet,extended 500 mg PO QAM 08/25/21 08/25/21 History release 24 hr montelukast 10 mg tablet 10 mg PO HS 08/25/21 08/25/21 History (Singulair) promethazine 25 mg tablet 25 mg PO Q6H PRN 08/25/21 08/25/21 History Past Med/Surg History Medical History Anxiety and depression Asthma LAST USED RESCUE INHALER>JANUARY 2021 C. difficile colitis BEING TREATED WITH VANCO CURRENTLY (MOST RECENT TEST NEGATIVE) Cyst of left ovary Depression Enlarged liver Environmental allergies Fatty infiltration of liver GERD (gastroesophageal reflux disease) H/O supraventricular tachycardia History of TMJ disorder "NOT A CURRENT ISSUE" Insomnia Lactose intolerance Lumbar radiculopathy Migraine Morbid obesity Neuropathy Obesity PAC (premature atrial contraction) Paroxysmal SVT (supraventricular tachycardia) Prediabetes Sleep apnea Type 2 diabetes mellitus Surgical History H/O laminectomy Performed 04/12/2019 at [facility] [address] Frazier History of anesthesia reaction WOKE IN BETWEEN SURGERIES FOR KNEE AND WISDOM TEETH (AGE [age]) History of tonsillectomy and adenoidectomy Hx of right knee surgery [place] teeth extracted Family History Grandmother (Maternal) Cervical cancer Ovarian cancer Colorectal cancer Colonic polyp Father Myocardial infarction Family history of diabetes mellitus Other No family history of adverse response to anesthesia No pertinent family history Denies family history of Breast cancer Stroke Social History Smoking Status: Former smoker Tobacco Type: Cigarettes Second Hand Exposure: Yes ( A CHILD); Hx Alcohol Use: Yes Preferred Language: Turkish Communication Ability: Effective Visual Impairment: No Limitations Hearing Ability: Normal Crew Leader Required: No Beliefs That Will Affect Care: None marital status: Life Partner Current Living Situation: Significant Other Current Living Situation Comment: WITH BOYFRIEND current occupational status: employed 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 She exhibits 4-/5 left extensor pollicis longus with a 5 or 5 on the right. Plantar flexion and quadriceps are 5 5 bilaterally. Dorsiflexion is a 4/5 bilaterally. Deep tendon reflexes diminished. There is decreased sensation to the lower extremities. Results & Data ([facility]) Vital Signs (Past 12 Hours) Vital Signs Temp Pulse Pulse Resp BP BP Pulse Ox 08/25/21 14:54 36.6 C 112 H 18 136/80 96 08/25/21 14:00 114 H 17 94 08/25/21 13:30 115 H 16 94 08/25/21 13:00 105 H 20 120/73 94 08/25/21 12:30 114 H 19 93 08/25/21 12:00 104 H 20 105/67 94 08/25/21 11:30 104 H 16 94 08/25/21 11:00 105 H 24 94 08/25/21 10:30 98 H 18 127/75 93 08/25/21 10:00 95 H 16 125/86 95 08/25/21 09:30 100 H 21 115/80 97 08/25/21 09:00 99 H 19 117/79 97 08/25/21 07:40 36.8 C 112 H 20 143/99 H 96 Code Status & VTE Plan VTE Prophylaxis Plan VTE Prophylaxis will be ordered: Yes
[2021-08-25] MEDS ORDERED: DEXTROSE 50% 50 ML SYRINGE IV PRN (15:45)
[2021-08-25] MEDS ORDERED: GLUCAGON FOR INJ 1 MG VIAL SQ PRN (15:45)
[2021-08-25] MEDS ORDERED: GLUCOSE 10 TABS/TUBE PO PRN (15:45)
[2021-08-25] MEDS ORDERED: GLUCOSE 40% GEL 15 GM TUBE PO PRN (15:45)
[2021-08-25] MEDS ORDERED: CARBOHYDRATES FOR HYPOGLYCEMIA PO PRN (15:45)
[2021-08-25] MEDS ORDERED: CYCLOBENZAPRINE HCL 10 MG TAB PO PRN (15:53)
[2021-08-25] MEDS ORDERED: PROMETHAZINE HCL 25 MG TAB PO PRN (15:53)
[2021-08-25] MEDS ORDERED: dilTIAZem HCL 120 MG CAPCR PO SCH (16:00)
[2021-08-25] MEDS: GABAPENTIN 600 MG TAB PO SCH ×2 (16:04→21:40)
[2021-08-25] MEDS: traMADol HCL 50 MG TABLET PO PRN (16:09)
[2021-08-25 16:13] LABS: Pregnancy Test, Serum Negative (Negative)
[2021-08-25] MEDS ORDERED: bisacodyL 5 MG TABEC PO PRN (16:17)
[2021-08-25] MEDS ORDERED: INSULIN ASPART 100 UNITS/ML 3 ML PEN SC SCH (16:30)
[2021-08-25] MEDS ORDERED: NovoLIN-N (NPH) PER UNIT CHARGE SQ SCH (16:30)
--- NOTE | 2021-08-25 16:30 | Anesthesiology Consultation ---
Date of Service August 25, 2021 Assessment & Plan Chart Review Chart Review: Acceptable Risk for Surgery and Patient NOT seen in Pre Admission Testing Consults Requested none ASA ASA3 Proposed Anesthesia Anesthesia Type: General Additional Comments: covid test negative History Surgery Operation Date: 08/26/21 07:00 Proposed Procedures p L4-L5 Lumbar Decompression Fusion, Spinal Cord Monitoring - Keo Watkins, Height/Weight Height: 5 ft 7 in Weight: 141.8 kg Allergies Allergy/AdvReac Type Severity Reaction Status Date / Time prednisone Allergy Severe SVT Verified 08/25/21 09:05 cephalexin Allergy Intermediate hives Verified 08/25/21 09:05 Medications Home Medications Medication Instructions Recorded Confirmed Last Taken albuterol sulfate 90 mcg/actuation 2 puff INHALATION Q4H PRN 07/08/18 08/25/21 08/24/21 aerosol inhaler (Ventolin HFA) fluticasone propionate 50 2 spray INTRANASAL DAILY PRN 07/08/18 08/25/21 03/19/21 mcg/actuation nasal spray,suspension (Flonase Allergy Relief) sumatriptan succinate 25 mg tablet 25 mg PO Q2H PRN #7 tab 04/17/20 08/25/21 08/18/21 (Imitrex) multivitamin with minerals 1 tab PO QAM 05/20/20 08/25/21 08/24/21 (Hair,Skin and Nails) acetaminophen 500 mg tablet 1,000 mg PO TID 08/05/20 08/25/21 08/24/21 (Tylenol Extra Strength) ondansetron 4 mg disintegrating 4 mg PO Q8H PRN #30 tab 10/19/20 08/25/21 03/19/21 tablet diltiazem HCl 120 mg 120 mg PO QAM #90 cap 01/04/21 08/25/21 08/24/21 capsule,extended release 24 hr fluticasone 500 mcg-salmeterol 50 1 inh INHALATION Q12H #3 inhaler 01/04/21 08/25/21 Unknown mcg/dose blistr powdr for inhalation (Advair Diskus) omeprazole 40 mg capsule,delayed 40 mg PO QAM #90 cap 01/04/21 08/25/21 08/24/21 release topiramate 50 mg tablet (Topamax) 50 mg PO BID #180 tab 01/04/21 08/25/21 08/24/21 zolpidem 10 mg tablet (Ambien) 10 mg PO .qhs #30 tab 01/04/21 08/25/21 08/24/21 norgestimate 0.25 mg-ethinyl 1 tab PO QAM 02/18/21 08/25/21 08/24/21 estradiol 35 mcg tablet (Sprintec (28)) Saccharomyces boulardii 250 mg 250 mg PO BID 04/01/21 08/25/21 04/01/21 capsule (Florastor) fluticasone furoate 200 1 inh INHALATION QAM 04/01/21 08/25/21 08/24/21 mcg-vilanterol 25 mcg/dose inhalation powder (Breo Ellipta) umeclidinium 62.5 mcg/actuation 1 inh INHALATION DAILY 04/01/21 08/25/21 08/24/21 blister powder for inhalation (Incruse Ellipta) gabapentin 600 mg tablet 600 mg PO TID 04/26/21 08/25/21 08/24/21 oxycodone 5 mg tablet 5 - 10 mg PO Q6H PRN #20 tab 04/26/21 08/25/21 Unknown bisacodyl 5 mg tablet 15 mg PO DAILY PRN 08/25/21 08/25/21 08/24/21 cetirizine 10 mg tablet (Zyrtec) 10 mg PO HS 08/25/21 08/25/21 08/24/21 cyclobenzaprine 10 mg tablet 10 mg PO TID PRN 08/25/21 08/25/21 08/24/21 magnesium 250 mg tablet 250 mg PO DAILY 08/25/21 08/25/21 08/24/21 metformin 500 mg tablet,extended 500 mg PO QAM 08/25/21 08/25/21 08/24/21 release 24 hr montelukast 10 mg tablet 10 mg PO HS 08/25/21 08/25/21 08/24/21 (Singulair) polyethylene glycol 3350 17 gram 17 g PO DAILY 08/25/21 08/25/21 08/22/21 oral powder packet (Miralax) promethazine 25 mg tablet 25 mg PO Q6H PRN 08/25/21 08/25/21 Unknown Active Medications Generic Name Dose Route Start Last Admin Trade Name Freq PRN Reason Stop Dose Admin Diltiazem HCl 120 mg 08/25/21 16:00 08/25/21 16:04 Diltiazem Hcl 120 Mg Capcr PO 09/24/21 15:59 120 mg QAM LUCRETIA Administration Gabapentin 600 mg 08/25/21 15:30 08/25/21 16:04 Gabapentin 600 Mg Tab PO 09/24/21 15:29 600 mg TID LUCRETIA Administration Hydromorphone HCl 1 mg 08/25/21 14:42 08/25/21 15:07 Hydromorphone Inj 1 Mg/Ml Syringe IV 09/08/21 14:41 1 mg Q3H PRN Administration severe pain (scale 7-10) Sodium Chloride 1,000 mls @ 100 mls/hr 08/25/21 14:42 08/25/21 15:04 Nss 1000ml IV 09/24/21 14:41 100 mls/hr .Q10H LUCRETIA Administration Magnesium Hydroxide 30 ml 08/25/21 14:42 08/25/21 16:09 Magnesium Hydroxide Susp 30 Ml Udc PO 09/24/21 14:41 30 ml Q24H PRN Administration Constipation Miscellaneous 1 ea 08/25/21 16:00 08/25/21 15:10 Norgestimate/Ethinyl Estrad 0.25/0.035mg ~ Order Awaiting Action N/A 09/24/21 15:59 Not Given QS [facility] Protocol Tramadol HCl 50 - 100 mg 08/25/21 14:42 08/25/21 16:09 Tramadol Hcl 50 Mg Tablet PO 09/24/21 14:41 50 mg Q4H PRN Administration Moderate-Severe pain & Pre PT Past Medical History Medical History Anxiety and depression Asthma LAST USED RESCUE INHALER>JANUARY 2021 C. difficile colitis BEING TREATED WITH VANCO CURRENTLY (MOST RECENT TEST NEGATIVE) Cyst of left ovary Depression Enlarged liver Environmental allergies Fatty infiltration of liver GERD (gastroesophageal reflux disease) H/O supraventricular tachycardia History of TMJ disorder "NOT A CURRENT ISSUE" Insomnia Lactose intolerance Lumbar radiculopathy Migraine Morbid obesity Neuropathy Obesity PAC (premature atrial contraction) Paroxysmal SVT (supraventricular tachycardia) Prediabetes Sleep apnea Type 2 diabetes mellitus Exercise / Class Metabolic Activity III < 4 Walking/Shop/Light housework Past Family History Family History Grandmother (Maternal) Cervical cancer Ovarian cancer Colorectal cancer Colonic polyp Father Myocardial infarction Family history of diabetes mellitus Other No family history of adverse response to anesthesia No pertinent family history Denies family history of Breast cancer Stroke Past Surgical History Surgical History H/O laminectomy Performed 04/12/2019 at [facility] by Dr Frazier History of anesthesia reaction WOKE IN BETWEEN SURGERIES FOR KNEE AND WISDOM TEETH (AGE 15/16) History of tonsillectomy and adenoidectomy Hx of right knee surgery [place] teeth extracted Past Anesthesia History No Hx of Anesthesia Complications and No Family Hx of Anesthesia Complications Pt states she emerged from one of her surgeries combative and confused and disoriented History of PONV No Hx of PONV and No Hx of Motion Sickness Social History Pt was drinking up to 15 cans of Mountain Dew/day causing SVT. She has cut down to </= to 1 can /day. Also, she states the SVT might have been related to prednisone therapy. Smoking Status: Former smoker Hx Alcohol Use: Yes alcohol intake frequency: holidays/special occasions only substance use type: does not use Physical Exam Vital Signs Last Vital Signs Temp 36.6 C 08/25/21 14:54 Pulse 112 H 08/25/21 14:54 Resp 18 08/25/21 14:54 BP 136/80 08/25/21 14:54 Pulse Ox 96 08/25/21 14:54 Constitutional + morbidly obese ENMT Mouth: no dentition abnormality Thyromental Distance: > or= 3.5 Finger Breadths Mallampati Class: II Neck normal visual inspection and trachea midline; neck extension not limited Respiratory normal respiratory effort Auscultation: lungs clear to auscultation bilaterally Cardiovascular Rate/Rhythm: regular rate and regular rhythm Heart Sounds: no murmur Vessels: no carotid bruit Musculoskeletal Spine: normal cervical ROM Extremities: extremities normal to inspection Neurologic moves all extremities Motor/Sensory: no sensory deficit Psychiatric Orientation: alert and oriented x 3 Testing Laboratory Results 08/25/21 08:35 08/25/21 08:35 08/25/21 12:43 POC Glucose 126 H 08/25/21 09:31 POC Ur Test NEG Electrocardiogram Date: 10/29/20 Findings: + NSR @ (at 81;low voltage QRS) Echocardiogram Date: 08/04/20 EF: 55% LV Function: normal RWMA: + none Valvular Disease: + no significant valvular disease
[2021-08-25] MEDS: ONDANSETRON INJ 2 MG/ML 2 ML VIAL IV PRN (17:39)
[2021-08-25] MEDS ORDERED: Nursing to Pharmacy Communication SCH (19:45)
[2021-08-25] MEDS: oxyCODONE HCL IR 5 MG TAB (IMMEDIATE RELEASE) PO PRN (20:00)
[2021-08-25] MEDS ORDERED: MONTELUKAST SODIUM 10 MG TABLET PO SCH (21:00)
[2021-08-25] MEDS ORDERED: DOCUSATE SODIUM/SENNA 50/8.6MG TAB PO SCH (21:00)
[2021-08-25] MEDS: TOPIRAMATE 50 MG TAB PO SCH (21:40)
[2021-08-25] MEDS: MONTELUKAST SODIUM 10 MG TABLET PO SCH (21:40)
[2021-08-25] MEDS: CETIRIZINE HCL 10 MG TABLET PO SCH (21:40)
[2021-08-26] MEDS: traMADol HCL 50 MG TABLET PO PRN ×2 (00:04→17:15)
[2021-08-26] MEDS: ZOLPIDEM TARTRATE 10 MG TAB PO SCH ×2 (00:04→21:29)
[2021-08-26] MEDS: INSULIN ASPART 100 UNITS/ML 3 ML PEN SC SCH ×5 (00:31→22:08)
[2021-08-26] MEDS: SODIUM CHLORIDE 0.9% 1000ML 1,000 ML IV SCH ×2 (01:10→16:05)
[2021-08-26] MEDS: HYDROmorphone INJ 1 MG/ML SYRINGE IV PRN ×4 (01:18→20:18)
[2021-08-26] MEDS: oxyCODONE HCL IR 5 MG TAB (IMMEDIATE RELEASE) PO PRN ×2 (03:15→22:39)
[2021-08-26] MEDS: ONDANSETRON INJ 2 MG/ML 2 ML VIAL IV PRN (07:55)
[2021-08-26] MEDS: NORGESTIMATE/ETHINYL ESTRAD 0.25/0.035MG DSPK PO SCH (07:59)
[2021-08-26] MEDS: PANTOprazole 40 MG TAB PO SCH (07:59)
[2021-08-26] MEDS: GABAPENTIN 600 MG TAB PO SCH ×3 (07:59→21:29)
[2021-08-26] MEDS: TOPIRAMATE 50 MG TAB PO SCH ×2 (07:59→21:29)
[2021-08-26] MEDS: FLUTICASONE/VILANTEROL 200/25MCG 14 PUFFS/INHALER INH SCH (07:59)
[2021-08-26] MEDS: dilTIAZem HCL 120 MG CAPCR PO SCH (08:00)
[2021-08-26] MEDS: MAGNESIUM OXIDE 400 MG TAB PO SCH (08:00)
--- NOTE | 2021-08-26 08:59 | Hospitalist Progress Note ---
Date of Service August 26, 2021 Assessment & Plan (1) Intractable neuropathic pain of lumbosacral origin: Plan: Admitted to Dr. Watkins for surgical procedure tomorrow morning. S/p 2 previous back surgeries in 2019. Due for surgery today with Dr. Watkins, remain NPO, pain control Continue bowel regimen, had 2 bowel movements since arrival (2) Type 2 diabetes mellitus: Plan: A1C 6.1 on 08/17/21 Hold home agents SSI while in-patient Glycemic consult placed BSG AC HS (3) Constipation: Plan: Bowel regimen optimized yesterday, plan to continue (4) GERD (gastroesophageal reflux disease): Plan: Continue omeprazole 40 mg daily (5) Depression: Plan: Continue gabapentin, Topamax, zolpidem for sleep - Topamax for migraine control. (6) Anxiety: Plan: Medication as above (7) Morbid obesity: Plan: Diet and exercise to be encouraged throughout hospital stay (8) PAC (premature atrial contraction): Plan: Hs of such, stable. Continue Cardizem (9) Hypertension: Plan: Continue Cardizem (10) Abnormal colonoscopy: Plan: Pt notes having colonoscopy in March [address] Maria Antonia Galan, possible mass noted on imaging measuring 3-4 cm from the anal verge. Pt was supposed to have lower endoscopic ultrasound performed in May but did not get this done. She had previously had bought of c. diff and completed course of treatment, but did not want to do a prep again in May because her symptoms had improved/ did not want to exacerbate issues again. Encourage colonoscopy/ultrasound workup as outpatient after hospital stay. (11) Environmental allergies: Plan: Continue Breo Ellipta, albuterol prn DVT ppx: teds, scds pre-operatively CODE: Full code Dispo: Per primary service Patient seen in collaboration with Dr. Lizama. Please see addendum. Thank you for this consultation. We will follow the patient with you during their hospital stay. You can [facility] a [facility]05 via pager @ [phone]. Admission and Anticipated Discharge Date Admission Date: August 25, 2021 Supervising Physician Co-Signing Physician Notes Attending Addendum: care coordinated with RUTH ANN Zabrina Myrick please refer to her notes for full details, I agree with her notes patient seen and examined, records reviewed by myself as well on exam, patient seen resting in bedside chair, sitting up, comfortable, not in distress Patient's mom at the bedside visiting States pain is currently well controlled with pain medicine regimen No chest pain, palpitations, dizziness, shortness of breath no other symptoms VS noted and reviewed oriented x 3, not in distress, speaks in sentences with no effort nor accessory muscle use normal rate, regular rhythm, no murmurs clear breath sounds bilaterally non distended, soft, nontender Back-heavy dressing in place, ENOCH drain, with sanguinous output no bipedal edema, erythema, warmth no neuro deficits ASSESSMENT AND PLAN Lumbar spine stenosis, status post L4-L5 decompression fusion History of PACs History of hypertension Medically stable overall at this time Continue to monitor blood pressure and heart rate Continue Cardizem p.o. other diagnoses and plan of care as per RUTH ANN Myrick's notes Johnathan Sanchez MD Subjective Patient seen and examined in 317 bed 1. Feeling well today despite sleeping poorly. Difficult to find comfortable positioning but states pain is well controlled. Awaiting surgery today. Denies any fever, chills, lightheadedness, chest pain, shortness of breath, nausea, vomiting, abdominal pain, dysuria. Was constipated coming in the hospital but with increased bowel regimen, patient has had 2 large bowel movements since arrival. Review of Systems Review of Systems: At least ten systems reviewed and negative except as noted in the HPI. Physical Exam Physical Exam: Gen: WD/WN, NAD, lying in bed, A&Ox3, obese HEENT: Normocephalic, atraumatic, conjunctivae moist, sclerae anicteric, mucous membranes moist Lung: Clear to Auscultation bilaterally, no wheezes/rales/rhonchi Heart: Regular rate, regular rhythm, no murmurs, rubs, or gallops Abdomen: Soft, NT, ND +BS x 4 Extremities: Lower back pain, no edema, strength and sensation intact Skin: Warm, no rash Results & Data Results & Data ([facility]) Vital Signs (Past 12 Hours) Vital Signs Temp Pulse Resp BP Pulse Ox 08/26/21 07:11 36.7 C 98 H 18 134/83 96 08/25/21 23:28 36.6 C 106 H 16 142/88 H 96
[2021-08-26] MEDS ORDERED: FLUTICASONE/VILANTEROL 200/25MCG 14 PUFFS/INHALER INH SCH (09:00)
[2021-08-26] MEDS ORDERED: DEXAMETHASONE SOD INJ 4 MG/ML VIAL ONE (10:41)
[2021-08-26] MEDS ORDERED: ONDANSETRON INJ 2 MG/ML 2 ML VIAL ONE ×2 (10:41→12:44)
[2021-08-26] MEDS ORDERED: MIDAZOLAM HCL 1 MG/ML 2ML VIAL ONE (10:41)
[2021-08-26] MEDS ORDERED: LIDOCAINE 2% 2 ML VIAL/AMP(20MG/ML) INFIL ONE (10:41)
[2021-08-26] MEDS ORDERED: GLYCOPYRROLATE 0.2 MG/ML VIAL ONE (10:41)
[2021-08-26] MEDS ORDERED: NEOSTIGMINE METHYLSULFATE 1 MG/ML 10ML VIAL ONE (10:41)
[2021-08-26] MEDS ORDERED: PROPOFOL IV EMULSION 10 MG/ML 20 ML VIAL IV ONE (10:41)
[2021-08-26] MEDS ORDERED: HYDROmorphone INJ 2 MG/ML SYR/VIAL ONE ×2 (10:42→12:36)
[2021-08-26] MEDS ORDERED: LARYING-O-JET KIT (LTA) ONE (10:42)
[2021-08-26] MEDS ORDERED: SODIUM CHLORIDE 0.9% INJ 10 ML VIAL ONE (10:42)
[2021-08-26] MEDS ORDERED: ROCURONIUM BROMIDE 10 MG/ML 5 ML VIAL IV ONE ×2 (10:42→12:44)
--- NOTE | 2021-08-26 11:02 | History & Physical Bridge Note ---
Date of Service August 26, 2021 History & Physical Bridge Note I have examined the patient, reviewed the History & Physical and in the interval since the performance of the History & Physical I have noted the following changes of clinical significance: no changes noted Lumbar decompression and fusion L4-L5
[2021-08-26] MEDS ORDERED: EPINEPHrine INJ 1 MG/ML AMP ONE (11:05)
[2021-08-26] MEDS ORDERED: BUPIVACAINE 0.5 % 5 MG/1 ML MPF 30ML VIAL ONE (11:05)
[2021-08-26] MEDS ORDERED: ATROPINE SULFATE 0.1 MG/ML 10ML SYR IV PRN (11:09)
[2021-08-26] MEDS ORDERED: HYDROmorphone INJ 2 MG/ML SYR/VIAL IV PRN (11:09)
[2021-08-26] MEDS ORDERED: ePHEDrine sulfate 50 MG/ML AMP IV PRN (11:09)
[2021-08-26] MEDS ORDERED: ONDANSETRON INJ 2 MG/ML 2 ML VIAL IV PRN ×2 (11:09→14:59)
[2021-08-26] MEDS ORDERED: PROMETHAZINE HCL 12.5 MG in SODIUM CHLORIDE 0.9% 50 ML IV PRN ×2 (11:09→14:59)
[2021-08-26] MEDS ORDERED: FLOSEAL HEMOSTATIC MATRIX 10ML TOP ONE (12:02)
[2021-08-26] MEDS ORDERED: CLINDAMYCIN PHOS 300 MG/2 ML VIAL ONE (12:36)
[2021-08-26] MEDS ORDERED: PHENYLEPHRINE HCL 10 MG/ML VIAL ONE (12:40)
--- NOTE | 2021-08-26 13:17 | Operative Report ---
Post Operative Report Pre & Post Diagnosis Operation Date: 08/26/21 07:00 Pre-Op Diagnosis: Neurogenic claudication due to lumbar spinal stenosis Morbid obesity Post-Op Diagnosis: Neurogenic claudication due to lumbar spinal stenosis Morbid obesity I identified the patient and participated in the time-out.: Yes Procedure Operation Date: 08/26/21 07:00 Actual Procedures #1 revision lumbar decompression with bilateral medial facetectomies and foraminotomies L4-L5. #2 posterior spinal fusion L4-5. #3 placement posterior instrumentation L4-L5. #4 interbody fusion L4-5 per #5 placement peek cage 13 x 22 mm at L4-L5. #6 placement of locally harvested morselized autograft in the posterior gutters. #7 placement of I factor combined with V toss in the interbody space and posterior lateral gutters. Surgeon Keo Watkins, DO [employer] Emily Montes Estimated Blood Loss 150 Findings See Below The patient is 5 foot 7 inches tall weighing over 141 kg with a BMI of 49. Patient's body habitus did create significant technical difficulty requiring her deepest retractors longus instruments in order to perform her procedure. This had at least 50% increase to the operative time. Specimens None Indications This is a 36-year-old female who presents with marked clinical status with increased pain and weakness to lower extremities need for urgent decompression fusion. Description of Procedure Patient was met with identified informed consent obtained. Patient was then taken to the operative suite underwent intubation placed in a prone position the Eliel table on top of the Pablo frame. All bony prominences well-padded eyes inspected to ensure no external pressure placed upon the. This point the lumbar spine was prepped and draped in normal sterile fashion. Sharp dissection with the assistance of Bovie cautery was performed down to and exposing the remaining lamina and transverse processes of L4 and L5 bilaterally. From a caudal cephalad fashion revision complete laminectomy including bilateral medial facetectomies and foraminotomies at L4-L5 was performed. Pedicle screws then placed in L4 and L5 bilaterally with assistance of fluoroscopy and appropriately sized catie placed. Bilateral transforaminal portion left complete discectomy was performed endplates curetted to subcortical bleeding bone and a 13 x 22 mm peek cage filled with I factor tapped in position. The rods were then locked into final position bilaterally. The transverse processes of L for L5 burred to subcortical bleeding bone. I factor combined with Vitoss and locally harvested morselized autograft was placed in the posterior gutters. 15 round ENOCH drain inserted. The incision was then closed with 1 Vicryl in the fascia 2-0 Vicryl subcutaneously and 4 Monocryl for final skin closure. Steri-Strip sterile dressings placed. Patient waken taken PACU stable condition. Please note spinal cord monitoring was utilized at the procedure no changes noted. Lastly Emily Montes was present at the entire surgeon while the patient positioning complex portions of the surgery and final skin closure. I attest to the content of the Intraoperative Record and any orders documented therein. Any exceptions are noted below.
--- NOTE | 2021-08-26 13:39 | Fluoroscopy Report ---
INTRAOPERATIVE RADIOGRAPHS CLINICAL HISTORY: L4-L5 spinal fusion. Fluoroscopy time: 24 seconds. FINDINGS: 2 spot fluoroscopic views of the lower lumbar spine are presented. There has been discectom y at L4-L5 with laminectomy and posterior fusion at this several. Interpedicular screws are in place. The orthopedic hardware appears intact. IMPRESSION: Intraoperative images of the lumbar spine as above. Electronically signed by: Andres Ng M.D. 08/26/2021 1:38 PM
[2021-08-26] MEDS: fentaNYL citrate 100 MCG/2 ML VIAL IV PRN ×2 (13:48→13:54)
[2021-08-26] MEDS ORDERED: LABETALOL HCL IV 5 MG/ML 20ML IV PRN (14:14)
[2021-08-26] MEDS ORDERED: LABETALOL HCL IV 5 MG/ML 20ML IV ONE (14:20)
--- NOTE | 2021-08-26 14:41 | Anesthesiology Progress Note ---
Date of Service August 26, 2021 Anesthesia Post Procedure Vital Signs Vital Signs: Temp Pulse Resp BP Pulse Ox 08/26/21 14:30 102 H 12 155/77 H 95 08/26/21 14:20 97 H 12 169/89 H 95 08/26/21 14:10 109 H 14 178/92 H 94 08/26/21 14:00 106 H 16 160/91 H 95 08/26/21 13:50 112 H 18 184/94 H 96 08/26/21 13:40 108 H 16 156/102 H 99 08/26/21 13:34 98.2 F 101 H 22 150/98 H 98 08/26/21 10:39 97.7 F 102 H 22 109/71 100 08/26/21 07:11 98.1 F 98 H 18 134/83 96 08/25/21 23:28 97.9 F 106 H 16 142/88 H 96 08/25/21 14:54 97.9 F 112 H 18 136/80 96 Pain Intensity Bilateral Back: Pain Intensity: 4 Transfer of Care Handoff Completed per policy Notes Mental Status: alert / awake / arousable and participated in evaluation Patient Amnestic to Procedure: Yes Nausea / Vomiting: adequately controlled Pain: adequately controlled Airway Patency, RR, SpO2: stable & adequate BP & HR: stable & adequate Hydration State: stable & adequate Anesthetic Complications: no major complications apparent and Pt Satisfied with anesthetic care
[2021-08-26] MEDS ORDERED: bisacodyL 10 MG SUPP PR PRN (14:59)
[2021-08-26] MEDS ORDERED: hydrOXYzine HCl 25 MG TAB PO PRN (14:59)
[2021-08-26] MEDS ORDERED: DO NOT ADMINISTER PNEUMOCOCCAL VACCINE PRN (14:59)
[2021-08-26] MEDS ORDERED: METOCLOPRAMIDE HCL INJ 5 MG/ML 2 ML VIAL IV PRN (14:59)
[2021-08-26] MEDS ORDERED: LORazepam 0.5 MG/1 ML VIAL IV PRN (14:59)
[2021-08-26] MEDS ORDERED: diphenhydrAMINE Capsule 25 MG CAP PO PRN (14:59)
[2021-08-26] MEDS ORDERED: MAGNESIUM HYDROXIDE SUSP 30 ML UDC PO PRN (14:59)
[2021-08-26] MEDS ORDERED: ACETAMINOPHEN 1,000 MG/100 ML VIAL IV PRN (14:59)
[2021-08-26] MEDS ORDERED: ONDANSETRON 4 MG OD TAB PO PRN (14:59)
[2021-08-26] MEDS ORDERED: LORazepam 0.5 MG TAB PO PRN (14:59)
[2021-08-26] MEDS ORDERED: DO NOT ADMINISTER FLU VACCINE PRN (14:59)
[2021-08-26] MEDS ORDERED: ALUMINUM/MAGNESIUM SUSP 30 ML UDC PO PRN (14:59)
[2021-08-26] MEDS ORDERED: SOD PHOSPHATE/SOD BIPHOSPHATE ENEMA 132 ML BTL PR PRN (14:59)
[2021-08-26] MEDS ORDERED: FAMOTIDINE 20 MG TAB PO PRN (14:59)
[2021-08-26] MEDS ORDERED: NALOXONE HCL 0.4 MG/1 ML VIAL/CARP IV PRN (14:59)
--- NOTE | 2021-08-26 15:18 | Pharmacy Report ---
Pharmacy Glycemic Short Note 2 - Date of Service August 26, 2021 - Glycemic Short BSG Results (Last 24 hours): 08/25/21 08/25/21 08/26/21 17:36 23:52 05:55 POC Glucose 137 H 119 H 118 H 08/26/21 13:43 POC Glucose 118 H OUTPATIENT ANTIDIABETIC REGIMEN: * metformin 500 mg PO qAM * A1c = 6.1% ASSESSMENT: * Nallely is a 36 yo female admitted with neurogenic claudication due to lumbar spinal stenosis. * She was taken to the OR today for lumbar decompression and fusion. * Despite receiving a dose of dexamethasone 10 mg IV on 08/25, patient had excellent glycemic control over the past 24 hours with minimal novolog doses. * I will not schedule basal insulin for now. Reassess based on post surgery BSG as patient may have received a second dose of dexamethasone buddy-op. PLAN FOR INPATIENT GLYCEMIC CONTROL: * Hold outpatient oral diabetes medications * Basal insulin * hold * Bolus insulin * NovoLog per scale ACHS or Q6hrs while NPO * Goal Range: Low 110 mg/dL - High 140 mg/dL * Correction Factor: 20 mg/dL/unit * Nutritional / Prandial insulin per carb ratio of 1 unit per 8 grams CHO consumed PLAN FOR DISCHARGE: * A1c = 6.1% is at goal. Continue metformin on discharge.
[2021-08-26] MEDS: LACTATED RINGER'S 1,000 ML IV SCH ×2 (15:38→20:17)
[2021-08-26] MEDS: KETOROLAC 30 MG/ML VIAL IV SCH ×2 (16:17→21:30)
[2021-08-26] MEDS ORDERED: Nursing to Pharmacy Communication SCH (16:30)
[2021-08-26] MEDS ORDERED: COUGH DROP (SUGAR FREE) LOZ 24 LOZ/1 BOX BUCCAL PRN (20:03)
[2021-08-26] MEDS ORDERED: COUGH DROP (SUGAR FREE) LOZ 24 LOZ/1 BOX BUCCAL ONE (20:15)
[2021-08-26] MEDS: CLINDAMYCIN 600 MG in DEXTROSE 5% 50 ML IV SCH (20:17)
[2021-08-26] MEDS: DOCUSATE SODIUM/SENNA 50/8.6MG TAB PO SCH (21:29)
[2021-08-26] MEDS: CETIRIZINE HCL 10 MG TABLET PO SCH (21:29)
[2021-08-26] MEDS: MONTELUKAST SODIUM 10 MG TABLET PO SCH (21:29)
[2021-08-26] MEDS: ACETAMINOPHEN 500 MG TAB PO PRN (22:39)
[2021-08-27] MEDS: CLINDAMYCIN 600 MG in DEXTROSE 5% 50 ML IV SCH (03:22)
[2021-08-27] MEDS: KETOROLAC 30 MG/ML VIAL IV SCH ×2 (03:23→09:58)
[2021-08-27] MEDS: LACTATED RINGER'S 1,000 ML IV SCH (04:48)
[2021-08-27] MEDS ORDERED: CLINDAMYCIN 600 MG/54 ML BAG IV SCH (06:00)
[2021-08-27] MEDS: POLYETHYLENE (MIRALAX) 17 GM PACK PO SCH ×3 (06:04→17:50)
[2021-08-27] MEDS: HYDROmorphone INJ 1 MG/ML SYRINGE IV PRN ×3 (06:16→20:22)
[2021-08-27 06:22] LABS: Basophils # (auto) 0.01 K/uL (0-0.2); Eosinophils # (auto) 0.02 K/uL (0-0.5); Eosinophils % (auto) 0.1 %; Hematocrit (blood only) 37.3 % (37-47); Hemoglobin 12.2 g/dL (12.0-16.0); Immature Granulocytes # (auto) 0.11 K/uL (0.00-0.02); Immature Granulocytes % (auto) 0.5 %; Lymphocytes # (auto) 2.83 K/uL (1.2-3.4); Lymphocytes % (auto) 13.2 %; Mean Corpuscular Hemoglobin 28.1 pg (25-34); Mean Corpuscular Hgb Conc 32.7 g/dL (32-36); Mean Corpuscular Volume 85.9 fL (80-100); Mean Platelet Volume 8.9 fL (7.4-10.4); Monocytes # (auto) 1.36 K/uL (0.11-0.59); Monocytes % (auto) 6.4 %; Neutrophils # (auto) 17.08 K/uL (1.4-6.5); Neutrophils % (auto) 79.8 %; Platelet Count 390 K/uL (130-400); RDW Coefficient of Variation 14.1 % (11.5-14.5); RDW Standard Deviation 44.1 fL (36.4-46.3); Red Blood Count 4.34 M/uL (4.2-5.4); White Blood Count 21.41 K/uL (4.8-10.8)
[2021-08-27 07:05] LABS: BUN Creatinine Ratio 17.7 (10-20); Calcium 9.1 mg/dl (8.5-10.1); Creatinine Clr Calc Pharmacy 136.6 ml/min; Est GFR (African American) 102.9 ml/min; Est GFR (Non-African American) 88.8 ml/min; Potassium 3.7 mmol/L (3.5-5.1)
[2021-08-27] MEDS ORDERED: bisacodyL 10 MG SUPP PR PRN (08:23)
[2021-08-27] MEDS: metFORMIN HCL 500 MG TAB PO SCH (08:51)
[2021-08-27] MEDS: FLUTICASONE/VILANTEROL 200/25MCG 14 PUFFS/INHALER INH SCH (08:52)
[2021-08-27] MEDS: ACETAMINOPHEN 500 MG TAB PO PRN ×2 (08:52→18:35)
[2021-08-27] MEDS: oxyCODONE HCL IR 5 MG TAB (IMMEDIATE RELEASE) PO PRN ×4 (08:52→23:08)
[2021-08-27] MEDS: PANTOprazole 40 MG TAB PO SCH (08:53)
[2021-08-27] MEDS: GABAPENTIN 600 MG TAB PO SCH ×3 (08:53→20:59)
[2021-08-27] MEDS: dilTIAZem HCL 120 MG CAPCR PO SCH (08:53)
[2021-08-27] MEDS: TOPIRAMATE 50 MG TAB PO SCH ×2 (08:53→21:00)
[2021-08-27] MEDS: MAGNESIUM OXIDE 400 MG TAB PO SCH (08:54)
[2021-08-27] MEDS: NORGESTIMATE/ETHINYL ESTRAD 0.25/0.035MG DSPK PO SCH (08:54)
[2021-08-27] MEDS: INSULIN ASPART 100 UNITS/ML 3 ML PEN SC SCH ×4 (08:58→21:00)
--- NOTE | 2021-08-27 08:59 | Hospitalist Progress Note ---
Date of Service August 27, 2021 Assessment & Plan (1) Intractable neuropathic pain of lumbosacral origin: Plan: POD#1 s/p revision lumbar decompression with bilateral medial facetectomies and foraminotomies L4-L5 and posterior spinal fusion L4-5. Per ortho for pain control, wound care, anticoagulation and activities Monitor H&H, continue incentive spirometry, PT/OT when appropriate Continue bowel regimen (2) Type 2 diabetes mellitus: Plan: A1C 6.1 on 08/17/21 Hold home agents SSI while in-patient Glycemic consult placed BSG AC HS (3) Constipation: Plan: Continue bowel regimen (4) GERD (gastroesophageal reflux disease): Plan: Continue omeprazole 40 mg daily (5) Depression: Plan: Continue gabapentin, Topamax, zolpidem for sleep - Topamax for migraine control. (6) Anxiety: Plan: Medication as above (7) Morbid obesity: Plan: Diet and exercise to be encouraged throughout hospital stay (8) PAC (premature atrial contraction): Plan: Hs of such, stable. Continue Cardizem (9) Hypertension: Plan: Continue Cardizem (10) Abnormal colonoscopy: Plan: Pt notes having colonoscopy in March [address] Maria Antonia Galan, possible mass noted on imaging measuring 3-4 cm from the anal verge. Pt was supposed to have lower endoscopic ultrasound performed in May but did not get this done. She had previously had bought of c. diff and completed course of treatment, but did not want to do a prep again in May because her symptoms had improved/ did not want to exacerbate issues again. Encourage colonoscopy/ultrasound workup as outpatient after hospital stay. (11) Environmental allergies: Plan: Continue Breo Ellipta, albuterol prn DVT ppx: per ortho surgery CODE: Full code Dispo: per ortho surgery Patient seen in collaboration with Dr. Sanchez. Please see addendum. Thank you for this consultation. We will follow the patient with you during their hospital stay. You can reach a member of the [facility] Hospitalist Team 08/05 via pager @ [phone]. Admission and Anticipated Discharge Date Admission Date: August 25, 2021 Supervising Physician Co-Signing Physician Notes Attending Addendum: care coordinated with RUTH ANN Zabrina Myrick please refer to her notes for full details, I agree with her notes patient seen and examined, records reviewed by myself as well on exam, patient seen resting in bed side chair, comfortable, not in distress Very pleasant Unfortunately, this afternoon, patient had intense back pain while shifting positions in her bed Sitting up in chair, ambulating with no problems Also reports dry cough, no fevers or chills Also noticed some lower extremity edema, no pain or tenderness no other symptoms VS noted and reviewed oriented x 3, not in distress, speaks in sentences with no effort nor accessory muscle use normal rate, regular rhythm, no murmurs Faint crackles at the bilateral bases, no wheezing but non distended, soft, nontender Mild bilateral pedal edema, no but erythema, warmth no neuro deficits WBC 21.4 Hg 12.2 Crea 0.85 ASSESSMENT AND PLAN Status post lumbar spine decompression and fusion Heart rate well controlled Blood pressure elevated this morning, improving Reports dry cough, also has bilateral pedal edema Possible volume overload, Lasix 20 mg IV ordered Positive constipation, milk of mag added therapeutic support staff requested to switch patient to a different bed to avoid breakthrough pain other diagnoses and plan of care as per RUTH ANN Zabrina Myrick's notes Johnathan Sanchez MD Subjective Patient seen and examined in 317-1. Resting comfortably in bedside chair. Some surgical site discomfort but made better with ambulation and sitting upright. Participating with PT without issue. Tolerating diet, passing flatus. No postop bowel movement yet. Denies any fever, chills, chest pain, shortness breath, nausea, vomiting, abdominal pain, dysuria or diarrhea. Review of Systems Review of Systems: At least ten systems reviewed and negative except as noted in the HPI. Physical Exam Physical Exam: Gen: WD/WN, NAD, sitting in bedside chair, A&Ox3, obese HEENT: Normocephalic, atraumatic, conjunctivae moist, sclerae anicteric, mucous membranes moist Lung: Clear to Auscultation bilaterally, no wheezes/rales/rhonchi Heart: Regular rate, regular rhythm, no murmurs, rubs, or gallops Abdomen: Soft, NT, ND +BS x 4 Extremities: + Spinal dressing c/d/i. ENOCH drain visualized. No edema, strength and sensation intact Skin: Warm, no rash Results & Data Results & Data ([facility]) Vital Signs (Past 12 Hours) Vital Signs Temp Pulse Resp BP Pulse Ox 08/27/21 07:08 37.0 C 106 H 18 156/97 H 94 08/27/21 07:00 18 08/27/21 03:55 37.1 C 90 16 117/77 96 08/27/21 00:00 36.7 C 92 H 18 113/74 93 08/26/21 21:00 36.9 C 106 H 16 130/82 96 Laboratory Results Short CBC 08/27/21 Range/Units 05:59 WBC 21.41 H (4.8-10.8) K/uL Hgb 12.2 (12.0-16.0) g/dL Hct 37.3 (37-47) % Plt Count 390 (130-400) K/uL BMP 08/27/21 05:59 Sodium 138 Potassium 3.7 Chloride 108 H Carbon Dioxide 21 BUN 15 Creatinine 0.85 Glucose 117 H Calcium 9.1 Diagnostic Findings Lumbar Spine X-Ray 08/26/21 12:30 INTRAOPERATIVE RADIOGRAPHS CLINICAL HISTORY: L4-L5 spinal fusion. Fluoroscopy time: 24 seconds. FINDINGS: 2 spot fluoroscopic views of the lower lumbar spine are presented. There has been discectomy at L4-L5 with laminectomy and posterior fusion at this several. Interpedicular screws are in place. The orthopedic hardware appears intact. IMPRESSION: Intraoperative images of the lumbar spine as above. Electronically signed by: Andres Ng M.D. 08/26/2021 1:38 PM
[2021-08-27] MEDS: traMADol HCL 50 MG TABLET PO PRN (11:52)
--- NOTE | 2021-08-27 11:52 | Orthopedic Progress Note ---
Date of Service August 27, 2021 Assessment & Plan (1) Neurogenic claudication due to lumbar spinal stenosis: Plan: At this time we will continue physical therapy monitor her ENOCH output anticipate possible discharge home this weekend. Admission and Anticipated Discharge Date Admission Date: August 25, 2021 Subjective Patient's back pain is controlled leg symptoms markedly improved Physical Exam Physical Exam: Patient is up and ambulating about the room without difficulty. She has had excellent posture. Good strength testing. Results & Data ([facility]) Vital Signs (Past 12 Hours) Vital Signs Temp Pulse Resp BP Pulse Ox 08/27/21 07:08 37.0 C 106 H 18 156/97 H 94 08/27/21 07:00 18 08/27/21 03:55 37.1 C 90 16 117/77 96 08/27/21 00:00 36.7 C 92 H 18 113/74 93
[2021-08-27] MEDS ORDERED: NYSTATIN POWDER 15GM BTL EXT PRN (12:18)
[2021-08-27] MEDS ORDERED: guaiFENesin/DEXTROM SYRUP 100MG/10MG 5ML UDC PO PRN (15:00)
[2021-08-27] MEDS ORDERED: FUROSEMIDE INJ 20 MG/2 ML VIAL IV ONE (16:10)
[2021-08-27] MEDS ORDERED: MAGNESIUM HYDROXIDE SUSP 30 ML UDC PO ONE (16:10)
[2021-08-27] MEDS: DOCUSATE SODIUM/SENNA 50/8.6MG TAB PO SCH (20:59)
[2021-08-27] MEDS: ZOLPIDEM TARTRATE 10 MG TAB PO SCH (20:59)
[2021-08-27] MEDS: MONTELUKAST SODIUM 10 MG TABLET PO SCH (21:00)
[2021-08-27] MEDS: CETIRIZINE HCL 10 MG TABLET PO SCH (21:00)
[2021-08-27] MEDS ORDERED: MAGNESIUM HYDROXIDE SUSP 30 ML UDC PO PRN (22:00)
[2021-08-28] MEDS: POLYETHYLENE (MIRALAX) 17 GM PACK PO SCH (00:13)
[2021-08-28] MEDS: HYDROmorphone INJ 1 MG/ML SYRINGE IV PRN ×2 (02:21→09:50)
[2021-08-28] MEDS: ACETAMINOPHEN 500 MG TAB PO PRN ×3 (05:44→22:22)
[2021-08-28] MEDS: oxyCODONE HCL IR 5 MG TAB (IMMEDIATE RELEASE) PO PRN ×4 (05:46→22:22)
[2021-08-28 06:29] LABS: Hemoglobin 11.7 g/dL (12.0-16.0); Mean Corpuscular Hemoglobin 28.1 pg (25-34); Mean Corpuscular Hgb Conc 32.5 g/dL (32-36); Mean Corpuscular Volume 86.3 fL (80-100); Mean Platelet Volume 9.2 fL (7.4-10.4); Platelet Count 364 K/uL (130-400); RDW Coefficient of Variation 14.3 % (11.5-14.5); RDW Standard Deviation 44.3 fL (36.4-46.3); Red Blood Count 4.17 M/uL (4.2-5.4); White Blood Count 16.77 K/uL (4.8-10.8)
--- NOTE | 2021-08-28 06:41 | Orthopedic Progress Note ---
Date of Service August 28, 2021 Assessment & Plan (1) Neurogenic claudication due to lumbar spinal stenosis: Plan: Patient is doing well postoperative day #2. We will continue with OT and PT and pain control measures. We will continue GI and DVT prophylaxis as well. We will have her stay today and likely get her discharged home tomorrow if all goes well. Admission and Anticipated Discharge Date Admission Date: August 25, 2021 Subjective Patient seen bedside in room 317. She is doing well this morning. She did have an episode of very intense pain yesterday afternoon which she tried to logroll in bed. The pain reached a level of 10. This has since calmed down. She is not having any radicular complaints. She denies any other numbness, tingling, or paresthesias. Physical Exam Physical Exam: On exam she is alert and oriented. Her lower extremity motor exam reveals no focal atrophy her abdomen is soft and nontender. Her calves are supple nontender. Her ENOCH drain is in place and is put out 65 cc of drainage on the last shift. Results & Data ([facility]) Vital Signs (Past 12 Hours) Vital Signs Temp Pulse Resp BP Pulse Ox 08/27/21 22:03 36.7 C 97 H 17 125/80 96
[2021-08-28 06:59] LABS: BUN Creatinine Ratio 17.6 (10-20); Calcium 8.5 mg/dl (8.5-10.1); Creatinine Clr Calc Pharmacy 141.6 ml/min; Est GFR (African American) 107.5 ml/min; Est GFR (Non-African American) 92.7 ml/min; Potassium 3.7 mmol/L (3.5-5.1)
[2021-08-28] MEDS: TOPIRAMATE 50 MG TAB PO SCH ×2 (08:38→21:14)
[2021-08-28] MEDS: metFORMIN HCL 500 MG TAB PO SCH (08:39)
[2021-08-28] MEDS: MAGNESIUM OXIDE 400 MG TAB PO SCH (08:39)
[2021-08-28] MEDS: PANTOprazole 40 MG TAB PO SCH (08:39)
[2021-08-28] MEDS: dexAMETHasone 8 MG in SYRINGE 0 ML IV SCH (08:39)
[2021-08-28] MEDS: dilTIAZem HCL 120 MG CAPCR PO SCH (08:40)
[2021-08-28] MEDS: GABAPENTIN 600 MG TAB PO SCH ×3 (08:40→22:17)
[2021-08-28] MEDS: NORGESTIMATE/ETHINYL ESTRAD 0.25/0.035MG DSPK PO SCH (08:40)
[2021-08-28] MEDS: FLUTICASONE/VILANTEROL 200/25MCG 14 PUFFS/INHALER INH SCH (08:41)
[2021-08-28] MEDS: INSULIN ASPART 100 UNITS/ML 3 ML PEN SC SCH ×4 (09:36→21:00)
[2021-08-28] MEDS: traMADol HCL 50 MG TABLET PO PRN ×3 (11:21→21:13)
--- NOTE | 2021-08-28 15:51 | Hospitalist Progress Note ---
Date of Service August 28, 2021 Assessment & Plan (1) Intractable neuropathic pain of lumbosacral origin: Plan: POD#2 s/p revision lumbar decompression with bilateral medial facetectomies and foraminotomies L4-L5 and posterior spinal fusion L4-5. Remains medically stable overall Hemoglobin 11.7 Pain adequately controlled Blood pressure and heart rate within acceptable range Continue Cardizem Monitor closely (2) Type 2 diabetes mellitus: Plan: A1C 6.1 on 08/17/21 Hold home agents SSI while in-patient Glycemic consult placed BSG AC HS BSG 1 17-1 35 Continue to monitor (3) Constipation: Plan: Positive diarrhea today Hold bowel regimen Check for C. difficile persistent (4) GERD (gastroesophageal reflux disease): Plan: Continue omeprazole 40 mg daily (5) Depression: Plan: Continue gabapentin, Topamax, zolpidem for sleep - Topamax for migraine control. (6) Anxiety: Plan: Medication as above (7) Morbid obesity: Plan: Diet and exercise to be encouraged throughout hospital stay (8) PAC (premature atrial contraction): Plan: Hs of such, stable. Continue Cardizem (9) Hypertension: Plan: Continue Cardizem (10) Abnormal colonoscopy: Plan: per RONNELL Myrick's notes Pt notes having colonoscopy in [address] Maria Antonia Galan, possible mass noted on imaging measuring 3-4 cm from the anal verge. Pt was supposed to have lower endoscopic ultrasound performed in May but did not get this done. She had previously had bought of c. diff and completed course of treatment, but did not want to do a prep again in May because her symptoms had improved/ did not want to exacerbate issues again. Encourage colonoscopy/ultrasound workup as outpatient after hospital stay. (11) Environmental allergies: Plan: Continue Breo Ellipta, albuterol prn DVT ppx: per ortho surgery CODE: Full code Dispo: per ortho surgery Admission and Anticipated Discharge Date Admission Date: August 25, 2021 Subjective Follow-up status post lumbar decompression fusion, diabetes, history of PACs, hypertension, etc. Seen sitting up in bedside chair, comfortable, not in distress, in good spirits States she feels okay overall today Trying to stay with oral pain medications Able to ambulate in the hallways with no problems No chest pain, palpitations, dizziness, nausea vomiting Positive diarrhea today, attributes to laxatives No abdominal pain, fevers or chills No other symptoms Review of Systems Review of Systems: all noted and negative except for above Physical Exam Physical Exam: General- oriented x 3, not in distress, speaks in sentences with no effort or accessory muscle use Eyes- anicteric Neck- no JVD Lungs- clear breath sounds bilaterally, no rales/wheezes Heart- normal rate, regular rhythm; no murmurs Abdomen- normal bowel sounds, nondistended, soft, nontender Back-dressing in place: No bleeding or discharge Extremities-trace pretibial edema, no calf tenderness Neuro- alert, oriented x 3; no gross focal neurologic deficits Skin- warm & dry Results & Data Results & Data ([facility]) Vital Signs (Past 12 Hours) Vital Signs Temp Pulse Resp BP Pulse Ox 08/28/21 07:26 36.7 C 103 H 16 117/77 93 all noted and reviewed including below
[2021-08-28] MEDS: DOCUSATE SODIUM/SENNA 50/8.6MG TAB PO SCH (21:14)
[2021-08-28] MEDS: MONTELUKAST SODIUM 10 MG TABLET PO SCH (21:14)
[2021-08-28] MEDS: CETIRIZINE HCL 10 MG TABLET PO SCH (21:14)
[2021-08-28] MEDS: ZOLPIDEM TARTRATE 10 MG TAB PO SCH (22:16)
[2021-08-29] MEDS: HYDROmorphone INJ 1 MG/ML SYRINGE IV PRN (00:49)
[2021-08-29] MEDS: ACETAMINOPHEN 500 MG TAB PO PRN (06:26)
[2021-08-29] MEDS: oxyCODONE HCL IR 5 MG TAB (IMMEDIATE RELEASE) PO PRN ×3 (06:27→11:15)
[2021-08-29] MEDS: INSULIN ASPART 100 UNITS/ML 3 ML PEN SC SCH (08:34)
[2021-08-29] MEDS: dexAMETHasone 8 MG in SYRINGE 0 ML IV SCH (08:36)
[2021-08-29] MEDS: TOPIRAMATE 50 MG TAB PO SCH (08:38)
[2021-08-29] MEDS: NORGESTIMATE/ETHINYL ESTRAD 0.25/0.035MG DSPK PO SCH (08:38)
[2021-08-29] MEDS: dilTIAZem HCL 120 MG CAPCR PO SCH (08:38)
[2021-08-29] MEDS: PANTOprazole 40 MG TAB PO SCH (08:38)
[2021-08-29] MEDS: MAGNESIUM OXIDE 400 MG TAB PO SCH (08:38)
[2021-08-29] MEDS: metFORMIN HCL 500 MG TAB PO SCH (08:38)
[2021-08-29] MEDS: FLUTICASONE/VILANTEROL 200/25MCG 14 PUFFS/INHALER INH SCH (08:39)
--- NOTE | 2021-08-29 08:46 | Orthopedic Progress Note ---
Date of Service August 29, 2021 Assessment & Plan (1) Neurogenic claudication due to lumbar spinal stenosis: Plan: Patient is doing well postop day #3. At this point she is met discharge criteria and is going to be discharged home. She is to lift nothing heavier than 5 to 7 pounds. We will change her dressing before she leaves and DC her drain she should change her dressing once daily. She will call our office if there is any increased pain increased drainage from the incision. We will see her in the office for her postop visit in 2 weeks. Admission and Anticipated Discharge Date Admission Date: August 25, 2021 Subjective Patient was seen bedside in room 317. She is doing well this morning. She has been walking throughout the day. She is tolerating p.o. Her pain is well controlled. And she would like to go home. She denies any other numbness, tingling, paresthesias Physical Exam Physical Exam: On exam she is alert and oriented. Her dressing is clean dry and intact. She has had 50 cc of drainage on the last shift. Her strength and sensation are grossly intact her gait is stable. Her abdomen soft nontender calves are supple nontender. Results & Data ([facility]) Vital Signs (Past 12 Hours) Vital Signs Temp Pulse Resp BP Pulse Ox 08/29/21 07:24 36.7 C 84 16 142/95 H 97 08/28/21 22:44 37.1 C 88 16 135/85 96
[2021-08-29] MEDS: traMADol HCL 50 MG TABLET PO PRN (08:50)
[2021-08-29] MEDS: GABAPENTIN 600 MG TAB PO SCH (09:51)
--- NOTE | 2021-09-08 10:54 | Discharge Summary ---
Date of Service September 08, 2021 Admission HPI Per Admitting Provider This is a 36-year-old female has a history of undergoing a previous back surgery in 2019. She underwent a laminectomy followed by a wider decompression several months later. She had done nicely afterwards but over the past 6 months has had a marked decline in status with lumbosacral back pain progressing now into the bilateral legs. It radiates to the buttocks posterior thigh into the feet prickly into the great toe. She acknowledges numbness tingling and weakness. It has been progressive. She is been emergency room several times secondary to severe pain. 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 She denies any loss of bowel or bladder control. Discharge Data Consultations 08/25/21 08:29 ED Decision to Admit Stat 08/25/21 14:42 Consult Anesthesiology Routine Consult Internal Medicine Routine Procedures Performed Operation Date: 08/26/21 07:00 Actual Procedures p L4-L5 Lumbar Decompression Fusion, Spinal Cord Monitoring(Not Applicable) - eKo Watkins, Hospital Course (1) Neurogenic claudication due to lumbar spinal stenosis: Patient is a 36-year-old female history physical examination radiographic images consistent with the above-mentioned diagnosis. This reason she brought the operating room on 08/26/2021 undergone a lumbar decompression and fusion at L4-5. This performed by Dr. Watkins under general anesthesia. She left the operating with ENOCH drain in place and transferred to PACU in stable condition. She is then transferred to the orthopedic floor. She was placed on GI and DVT prophylaxis. On postop day 3 she met discharge criteria and was discharged home. Her instructions were reviewed in detail she is to follow-up in the office approximately 2 weeks out from surgery or sooner if she developed any increased pain fevers or chills.
== END 2021-08-29 11:56 | disposition home or self-care (01) | DRG 454 ==
LOC: ED 07:34 → 3E 08:28